=== PATIENT | male | born 1985 | race African-American/Black ===

== ENCOUNTER 2018-02-02 18:08 | Inpatient (IN) | payer MEDICAID ==
[~2018-02-02] VITALS: Ht 177.8 cm; Wt 93.9 kg
[~2018-02-02 18:08] MED LIST: BENZ2TAB58 PO; BUPR100SR PO; QUET50TA PO
[2018-02-02 20:39] VITALS: BP 130/81
[2018-02-02] MEDS: ZOLPIDEM TARTRATE 10 MG TABLET PO PRN (21:32)
[2018-02-02] MEDS: LORazepam 2 MG TABLET PO PRN (21:32)
[2018-02-02 21:35] VITALS: BP 138/82
[2018-02-02] MEDS ORDERED: ACETAMINOPHEN 325 MG TABLET PO PRN (22:00)
[2018-02-02] MEDS ORDERED: LOPERAMIDE HCL 2 MG CAPSULE PO PRN (22:00)
[2018-02-02] MEDS ORDERED: GuaiFENesin/D-METHORPHAN [SUGAR-FREE] 200-20MG/10 ML SYRUP UDCUP PO PRN (22:00)
[2018-02-02] MEDS ORDERED: MAGNESIUM HYDROXIDE SUSPENSION 30 ML UDCUP PO PRN (22:00)
[2018-02-02] MEDS ORDERED: NICOTINE 14 MG/24 HOUR PATCH TD PRN (22:00)
[2018-02-02] MEDS ORDERED: ALBUTEROL SULFATE HFA 90 MCG/PUFF 8 GM INHALER IH PRN (22:00)
[2018-02-02] MEDS ORDERED: PETROLATUM,WHITE 71 GM JELLY TP PRN (22:00)
[2018-02-02] MEDS ORDERED: ONDANSETRON HCL 4 MG TABLET PO PRN (22:00)
[2018-02-02] MEDS ORDERED: DOCUSATE SODIUM 100 MG CAPSULE PO PRN (22:00)
[2018-02-02] MEDS ORDERED: MAG HYDROX/AL HYDROX/SIMETH ES 30 ML SUSPENSION UDCUP PO PRN (22:00)
[2018-02-02] MEDS ORDERED: CloNIDine HCL 0.1 MG TABLET PO PRN (22:00)
[2018-02-03 05:48] VITALS: BP 108/76
[2018-02-03 07:59] LABS: BASOPHILS % (AUTO) 0.5 % (0.0-2.0); EOSINOPHILS % (AUTO) 3.1 % (1.0-6.0); HEMATOCRIT 38.7 % (41-53); HEMOGLOBIN 13.4 g/dL (13.5-17.5); LYMPHOCYTES # (AUTO) 2.7 K/uL (1.0-4.8); LYMPHOCYTES % (AUTO) 38.5 % (22.0-44.0); MEAN CORPUSCULAR HEMOGLOBIN 29.2 pg (26.0-34.0); MEAN CORPUSCULAR HGB CONC 34.7 G/dL (31.0-37.0); MEAN CORPUSCULAR VOLUME 84 fL (80-100); MONOCYTES # (AUTO) 0.8 K/uL (0.1-1.0); MONOCYTES % (AUTO) 11.5 % (2.0-9.0); NEUTROPHILS # (AUTO) 3.2 K/uL (1.8-7.7); NEUTROPHILS % (AUTO) 46.4 % (40.0-70.0); PLATELET COUNT (AUTO) 305 K/uL (150-450); RED BLOOD CELL COUNT(AUTO) 4.59 MIL/uL (4.50-5.90); RED CELL DISTRIBUTION WIDTH 14.6 % (11.5-14.5)
[2018-02-03 08:09] LABS: HEMOGLOBIN A1C 5.1 % (4.5-6.2)
[2018-02-03 08:20] LABS: ALANINE AMINOTRANSFERASE 30 U/L (12-78); ALBUMIN 3.6 g/dL (3.4-5.0); ALKALINE PHOSPHATASE 54 U/L (46-116); ANION GAP 2 mmol/L (8-16); ASPARTATE AMINOTRANSFERASE 22 U/L (15-37); BILIRUBIN,TOTAL 0.3 mg/dL (0.1-1.0); CALCIUM, TOTAL 9.5 mg/dL (8.8-10.5); CARBON DIOXIDE 34 mmol/L (22-29); CHLORIDE 104 mmol/L (98-107); CHOL/HDL RATIO 3.2 (4.2-7.3); CHOLESTEROL 161 mg/dL (131-200); CREATININE 1.03 mg/dL (0.60-1.30); GLOMERULAR FILTR. RATE CALC > 60 mL/min (>60); GLUCOSE,RANDOM 85 mg/dL (70-110); HDL CHOLESTEROL 51 mg/dL (40-60); LDL CHOL (CALC.) 97 mg/dL (0-130); POTASSIUM 4.8 mmol/L (3.5-5.1); SODIUM SERUM 140 mmol/L (136-145); THYROID STIMULATING HORMONE 1.66 uIU/mL (0.36-3.74); TOTAL PROTEIN, SERUM 7.5 g/dL (6.4-8.2); TRIGLYCERIDES 65 mg/dL (15-150); UREA NITROGEN, BLOOD 9 mg/dL (7-18)
[2018-02-03 09:02] VITALS: BP 113/68
[2018-02-03] MEDS: QUEtiapine FUMARATE 100 MG TABLET PO SCH (13:33)
[2018-02-03 16:00] VITALS: BP 112/63
[2018-02-03] MEDS: BENZTROPINE MESYLATE 2 MG TABLET PO SCH (16:11)
[2018-02-03] MEDS: LORazepam 2 MG TABLET PO PRN ×2 (16:13→23:59)
[2018-02-03] MEDS: MIRTAZAPINE 15 MG TABLET PO SCH (20:15)
[2018-02-03] MEDS: QUEtiapine FUMARATE 200 MG TABLET PO SCH (20:15)
[2018-02-03] MEDS: ZOLPIDEM TARTRATE 10 MG TABLET PO PRN (23:59)
[2018-02-04 00:01] VITALS: BP 115/74
[2018-02-04 08:03] VITALS: BP 114/68
[2018-02-04] MEDS: QUEtiapine FUMARATE 100 MG TABLET PO SCH (08:09)
[2018-02-04] MEDS: BENZTROPINE MESYLATE 2 MG TABLET PO SCH ×2 (08:09→16:52)
[2018-02-04] MEDS: LORazepam 2 MG TABLET PO PRN ×2 (14:14→18:27)
[2018-02-04 16:51] VITALS: BP 128/60
[2018-02-04] MEDS: QUEtiapine FUMARATE 200 MG TABLET PO SCH (20:23)
[2018-02-04] MEDS: MIRTAZAPINE 15 MG TABLET PO SCH (20:23)
[2018-02-04] MEDS: ZOLPIDEM TARTRATE 10 MG TABLET PO PRN (21:33)
[2018-02-05 00:10] VITALS: BP 122/78
[2018-02-05] MEDS: LORazepam 2 MG TABLET PO PRN ×3 (00:14→20:15)
[2018-02-05] MEDS: HALOPERIDOL 5 MG TABLET PO PRN (00:14)
[2018-02-05] MEDS: BENZTROPINE MESYLATE 2 MG TABLET PO SCH ×2 (08:33→16:11)
[2018-02-05] MEDS: QUEtiapine FUMARATE 100 MG TABLET PO SCH (08:33)
[2018-02-05 10:02] VITALS: BP 108/89
[2018-02-05] MEDS ORDERED: HALOPERIDOL LACTATE 5 MG/ML VIAL ONE (10:28)
[2018-02-05] MEDS ORDERED: DiphenhydrAMINE HCL 50 MG/ML VIAL ONE (10:28)
[2018-02-05] MEDS ORDERED: LORazepam 2 MG/ML VIAL ONE (10:28)
[2018-02-05] MEDS ORDERED: DiphenhydrAMINE HCL 50 MG/ML VIAL IM ONE ×2 (11:15→21:45)
[2018-02-05] MEDS ORDERED: HALOPERIDOL LACTATE 5 MG/ML VIAL IM ONE ×2 (11:15→21:45)
[2018-02-05] MEDS ORDERED: LORazepam 2 MG/ML VIAL IM ONE ×2 (11:15→21:45)
[2018-02-05 16:15] VITALS: BP 126/76
[2018-02-05] MEDS: QUEtiapine FUMARATE 200 MG TABLET PO SCH (20:15)
[2018-02-05] MEDS: ZOLPIDEM TARTRATE 10 MG TABLET PO PRN (20:15)
[2018-02-05] MEDS: MIRTAZAPINE 15 MG TABLET PO SCH (20:15)
[2018-02-06 04:51] VITALS: BP 115/68
[2018-02-06 08:02] VITALS: BP 129/70
[2018-02-06] MEDS: NICOTINE 21 MG/24 HOUR PATCH TD SCH (08:30)
[2018-02-06] MEDS: QUEtiapine FUMARATE 100 MG TABLET PO SCH (08:30)
[2018-02-06] MEDS: LORazepam 2 MG TABLET PO PRN ×2 (08:31→16:39)
[2018-02-06] MEDS: HALOPERIDOL 5 MG TABLET PO PRN (08:31)
[2018-02-06] MEDS: BENZTROPINE MESYLATE 2 MG TABLET PO SCH ×2 (08:31→16:39)
[2018-02-06 16:10] VITALS: BP 119/78
[2018-02-06] MEDS: IBUPROFEN 400 MG TABLET PO PRN (16:39)
[2018-02-06] MEDS: ZOLPIDEM TARTRATE 10 MG TABLET PO PRN (20:13)
[2018-02-06] MEDS: MIRTAZAPINE 15 MG TABLET PO SCH (20:13)
[2018-02-07 08:02] VITALS: BP 126/68
[2018-02-07] MEDS: NICOTINE 21 MG/24 HOUR PATCH TD SCH (08:29)
[2018-02-07] MEDS: BENZTROPINE MESYLATE 2 MG TABLET PO SCH ×2 (08:29→16:32)
[2018-02-07] MEDS: ARIPiprazole 10 MG TABLET PO SCH (08:29)
[2018-02-07] MEDS: LORazepam 2 MG TABLET PO PRN (16:32)
[2018-02-07 16:34] VITALS: BP 112/76
[2018-02-07] MEDS: ZOLPIDEM TARTRATE 10 MG TABLET PO PRN (20:18)
[2018-02-07] MEDS: MIRTAZAPINE 15 MG TABLET PO SCH (20:18)
[2018-02-08 03:13] VITALS: BP 123/80
[2018-02-08] MEDS: IBUPROFEN 400 MG TABLET PO PRN ×2 (03:13→17:11)
[2018-02-08] MEDS: LORazepam 2 MG TABLET PO PRN ×2 (03:13→16:23)
[2018-02-08 08:04] VITALS: BP 127/67
[2018-02-08] MEDS: BENZTROPINE MESYLATE 2 MG TABLET PO SCH ×2 (08:34→16:23)
[2018-02-08] MEDS: ARIPiprazole 10 MG TABLET PO SCH (08:34)
[2018-02-08] MEDS: NICOTINE 21 MG/24 HOUR PATCH TD SCH (09:00)
[2018-02-08 16:10] VITALS: BP 124/68
[2018-02-08 17:10] VITALS: BP 122/70
[2018-02-08 17:40] VITALS: BP 128/74
[2018-02-08] MEDS: MIRTAZAPINE 15 MG TABLET PO SCH (21:00)
== END 2018-02-08 17:50 | disposition short-term general hospital (02) | DRG 751 ==
LOC: B3A 20:58
PROVIDERS: ADMIT Psychiatry & Neurology Psychiatry; ATTEND Psychiatry & Neurology Psychiatry
DX: F33.3 Major depressive disorder, recurrent, severe with psychotic symptoms (principal); R45.851 Suicidal ideations; F60.3 Borderline personality disorder; F10.10 Alcohol abuse, uncomplicated; F41.9 Anxiety disorder, unspecified; D64.9 Anemia, unspecified; G47.00 Insomnia, unspecified; K59.00 Constipation, unspecified; R45.87 Impulsiveness; J06.9 Acute upper respiratory infection, unspecified; Y90.9 Presence of alcohol in blood, level not specified; Z71.41 Alcohol abuse counseling and surveillance of alcoholic; Z59.0 Homelessness
CPT/HCPCS: 83036; 84443; 86592; J1200; J1630; J2060; Q0162

== ENCOUNTER 2018-02-08 18:15 | Inpatient (IN) | payer MEDICAID ==
[~2018-02-08] VITALS: Ht 177.8 cm; Wt 94.1 kg
[2018-02-08] MEDS ORDERED: ACETAMINOPHEN 325 MG TABLET PO ONE (19:30)
[2018-02-08] MEDS ORDERED: SODIUM CHLORIDE 0.9% 1,000 ML IV ONE (19:30)
[2018-02-08] MEDS ORDERED: ONDANSETRON HCL 4 MG/2 ML VIAL IVP ONE (19:30)
[2018-02-08] MEDS ORDERED: KETOROLAC TROMETHAMINE 30 MG/ML VIAL IVP ONE (19:30)
[2018-02-08 20:48] LABS: INFLUENZA TYPE A NEGATIVE FOR TYPE A (NEGATIVE); INFLUENZA TYPE B NEGATIVE FOR TYPE B (NEGATIVE)
[2018-02-08 21:04] LABS: BASOPHILS % (AUTO) 0.9 % (0.0-2.0); EOSINOPHILS % (AUTO) 0 % (1.0-6.0); HEMATOCRIT 36.2 % (41-53); HEMOGLOBIN 12.2 g/dL (13.5-17.5); LYMPHOCYTES # (AUTO) 2.2 K/uL (1.0-4.8); LYMPHOCYTES % (AUTO) 12.1 % (22.0-44.0); MEAN CORPUSCULAR HEMOGLOBIN 28.5 pg (26.0-34.0); MEAN CORPUSCULAR HGB CONC 33.7 G/dL (31.0-37.0); MEAN CORPUSCULAR VOLUME 85 fL (80-100); MONOCYTES # (AUTO) 1.9 K/uL (0.1-1.0); MONOCYTES % (AUTO) 10.4 % (2.0-9.0); NEUTROPHILS # (AUTO) 14.1 K/uL (1.8-7.7); NEUTROPHILS % (AUTO) 76.6 % (40.0-70.0); PLATELET COUNT (AUTO) 271 K/uL (150-450); RED BLOOD CELL COUNT(AUTO) 4.29 MIL/uL (4.50-5.90); RED CELL DISTRIBUTION WIDTH 14.7 % (11.5-14.5)
[2018-02-08 21:19] LABS: ANION GAP 8 mmol/L (8-16); CALCIUM, TOTAL 9.1 mg/dL (8.8-10.5); CARBON DIOXIDE 27 mmol/L (22-29); CHLORIDE 99 mmol/L (98-107); GLOMERULAR FILTR. RATE CALC > 60 mL/min (>60); GLUCOSE,RANDOM 99 mg/dL (70-110); POTASSIUM 3.9 mmol/L (3.5-5.1); SODIUM SERUM 134 mmol/L (136-145); UREA NITROGEN, BLOOD 10 mg/dL (7-18)
[2018-02-08 21:26] LABS: APPEARANCE,URINE CLOUDY (CLEAR); BILIRUBIN,URINE NEGATIVE (NEGATIVE); GLUCOSE, URINE (UA) NEGATIVE (NEGATIVE); KETONES,URINE NEGATIVE (NEGATIVE); LEUKOCYTE ESTERASE ,URINE MODERATE (NEGATIVE); NITRATE,URINE NEGATIVE (NEGATIVE); OCCULT BLOOD,URINE TRACE (NEGATIVE); PH,URINE 6.5 (5.0-8.0); PROTEIN,URINE NEGATIVE (NEGATIVE); UROBILINOGEN,URINE 0.2 mg/dL (<=1.0)
[2018-02-08 21:42] LABS: WBC,URINE 51-100 /HPF (0-5)
[2018-02-08 21:43] LABS: BACTERIA,URINE Many /HPF (None Seen); RBC,URINE 0-2 /HPF (0-2)
[2018-02-08 21:44] LABS: MUCUS,URINE Rare LPF (None Seen); SQUAMOUS EPITHELIAL CELL,UR Few /LPF (None Seen)
[2018-02-08] MEDS ORDERED: 0.9% SODIUM CHLORIDE 10 ML SYRINGE IVP PRN (22:00)
[2018-02-08] MEDS ORDERED: CefTRIAXone 1 GM/DEXTROSE 50 ML IV ONE (22:00)
[2018-02-08] MEDS ORDERED: ACETAMINOPHEN 325 MG TABLET PO PRN (22:00)
[2018-02-09] MEDS ORDERED: MAGNESIUM HYDROXIDE SUSPENSION 30 ML UDCUP PO PRN (08:00)
[2018-02-09 08:18] VITALS: BP 117/68
[2018-02-09] MEDS: PANTOPRAZOLE SODIUM 40 MG DR TABLET PO SCH (09:04)
[2018-02-09] MEDS: DOCUSATE SODIUM 100 MG CAPSULE PO SCH ×2 (09:04→20:10)
[2018-02-09] MEDS: SODIUM CHLORIDE 0.9% 1,000 ML IV SCH ×2 (09:07→15:54)
[2018-02-09 11:06] VITALS: BP 125/74
[2018-02-09] MEDS: OxyCODONE HCL/ACETAMINOPHEN 5-325 MG TABLET PO PRN ×2 (12:34→18:28)
[2018-02-09 17:54] VITALS: BP 123/74
[2018-02-09] MEDS: CefTRIAXone 1 GM/DEXTROSE 50 ML IV SCH (20:10)
[2018-02-09 20:28] VITALS: BP 95/52
[2018-02-09] MEDS: ACETAMINOPHEN 325 MG TABLET PO PRN (20:39)
[2018-02-10] MEDS: SODIUM CHLORIDE 0.9% 1,000 ML IV SCH ×3 (00:07→16:40)
[2018-02-10 00:13] VITALS: BP 97/48
[2018-02-10] MEDS: ACETAMINOPHEN 325 MG TABLET PO PRN (05:40)
[2018-02-10 05:42] VITALS: BP 116/68
[2018-02-10 06:33] LABS: BASOPHILS % (AUTO) 0.7 % (0.0-2.0); EOSINOPHILS % (AUTO) 1.8 % (1.0-6.0); HEMATOCRIT 32.4 % (41-53); HEMOGLOBIN 11.1 g/dL (13.5-17.5); LYMPHOCYTES % (AUTO) 14.2 % (22.0-44.0); MEAN CORPUSCULAR HEMOGLOBIN 29.4 pg (26.0-34.0); MEAN CORPUSCULAR HGB CONC 34.2 G/dL (31.0-37.0); MEAN CORPUSCULAR VOLUME 86 fL (80-100); MONOCYTES # (AUTO) 1.6 K/uL (0.1-1.0); MONOCYTES % (AUTO) 11.3 % (2.0-9.0); PLATELET COUNT (AUTO) 237 K/uL (150-450); RED BLOOD CELL COUNT(AUTO) 3.77 MIL/uL (4.50-5.90); RED CELL DISTRIBUTION WIDTH 14.4 % (11.5-14.5)
[2018-02-10 06:40] LABS: ANION GAP 7 mmol/L (8-16); CALCIUM, TOTAL 8.7 mg/dL (8.8-10.5); CARBON DIOXIDE 28 mmol/L (22-29); CHLORIDE 105 mmol/L (98-107); CREATININE 1.07 mg/dL (0.60-1.30); GLOMERULAR FILTR. RATE CALC > 60 mL/min (>60); GLUCOSE,RANDOM 94 mg/dL (70-110); POTASSIUM 3.8 mmol/L (3.5-5.1); SODIUM SERUM 140 mmol/L (136-145); UREA NITROGEN, BLOOD 10 mg/dL (7-18)
[2018-02-10 07:34] VITALS: BP 108/62
[2018-02-10] MEDS: OxyCODONE HCL/ACETAMINOPHEN 5-325 MG TABLET PO PRN ×2 (08:23→16:40)
[2018-02-10] MEDS: DOCUSATE SODIUM 100 MG CAPSULE PO SCH ×2 (08:23→20:31)
[2018-02-10] MEDS: PANTOPRAZOLE SODIUM 40 MG DR TABLET PO SCH (08:23)
[2018-02-10] MEDS ORDERED: QUET300T2 PO (12:48)
[2018-02-10 15:34] VITALS: BP 109/51
[2018-02-10 19:17] VITALS: BP 117/78
[2018-02-10] MEDS: BENZTROPINE MESYLATE 2 MG TABLET PO SCH (20:31)
[2018-02-10] MEDS: MIRTAZAPINE 15 MG TABLET PO SCH (20:31)
[2018-02-10] MEDS: CefTRIAXone 1 GM/DEXTROSE 50 ML IV SCH (20:31)
[2018-02-10 23:48] VITALS: BP 113/61
[2018-02-11 03:56] VITALS: BP 112/63
[2018-02-11] MEDS: SODIUM CHLORIDE 0.9% 1,000 ML IV SCH ×2 (06:01→15:02)
[2018-02-11] MEDS: OxyCODONE HCL/ACETAMINOPHEN 5-325 MG TABLET PO PRN ×2 (06:01→15:14)
[2018-02-11 07:35] VITALS: BP 114/62
[2018-02-11] MEDS: BENZTROPINE MESYLATE 2 MG TABLET PO SCH ×2 (09:29→19:48)
[2018-02-11] MEDS: ARIPiprazole 10 MG TABLET PO SCH (09:29)
[2018-02-11] MEDS: DOCUSATE SODIUM 100 MG CAPSULE PO SCH ×2 (09:29→19:48)
[2018-02-11] MEDS: PANTOPRAZOLE SODIUM 40 MG DR TABLET PO SCH (09:29)
[2018-02-11 11:22] VITALS: BP 118/62
[2018-02-11 16:05] VITALS: BP 119/70
[2018-02-11 19:16] VITALS: BP 121/79
[2018-02-11] MEDS: MIRTAZAPINE 15 MG TABLET PO SCH (19:48)
[2018-02-11] MEDS: CefTRIAXone 1 GM/DEXTROSE 50 ML IV SCH (19:48)
[2018-02-11 23:41] VITALS: BP 122/65
[2018-02-12] MEDS: SODIUM CHLORIDE 0.9% 1,000 ML IV SCH ×2 (01:23→09:21)
[2018-02-12 05:09] VITALS: BP 125/76
[2018-02-12 06:09] LABS: EOSINOPHILS % (AUTO) 4.1 % (1.0-6.0); HEMATOCRIT 37.7 % (41-53); HEMOGLOBIN 12.5 g/dL (13.5-17.5); LYMPHOCYTES # (AUTO) 2.5 K/uL (1.0-4.8); LYMPHOCYTES % (AUTO) 35.5 % (22.0-44.0); MEAN CORPUSCULAR HEMOGLOBIN 28.7 pg (26.0-34.0); MEAN CORPUSCULAR HGB CONC 33.3 G/dL (31.0-37.0); MEAN CORPUSCULAR VOLUME 86 fL (80-100); MONOCYTES % (AUTO) 14.3 % (2.0-9.0); NEUTROPHILS # (AUTO) 3.1 K/uL (1.8-7.7); NEUTROPHILS % (AUTO) 45.1 % (40.0-70.0); PLATELET COUNT (AUTO) 283 K/uL (150-450); RED BLOOD CELL COUNT(AUTO) 4.37 MIL/uL (4.50-5.90); RED CELL DISTRIBUTION WIDTH 14.8 % (11.5-14.5)
[2018-02-12 08:04] VITALS: BP 124/67
[2018-02-12] MEDS: BENZTROPINE MESYLATE 2 MG TABLET PO SCH (08:38)
[2018-02-12] MEDS: PANTOPRAZOLE SODIUM 40 MG DR TABLET PO SCH (08:38)
[2018-02-12] MEDS: ARIPiprazole 10 MG TABLET PO SCH (08:38)
[2018-02-12] MEDS: DOCUSATE SODIUM 100 MG CAPSULE PO SCH (08:39)
[2018-02-12] MEDS: OxyCODONE HCL/ACETAMINOPHEN 5-325 MG TABLET PO PRN (08:46)
[2018-02-12] MEDS ORDERED: BACTDSB PO (09:47)
== END 2018-02-12 10:15 | disposition home or self-care (01) | DRG 720 ==
LOC: EMS 18:16 → 6N 02-09 05:37
PROVIDERS: ADMIT Internal Medicine; ATTEND Internal Medicine
DX: A41.9 Sepsis, unspecified organism (principal); F33.3 Major depressive disorder, recurrent, severe with psychotic symptoms; N12 Tubulo-interstitial nephritis, not specified as acute or chronic; F99 Mental disorder, not otherwise specified; F41.9 Anxiety disorder, unspecified; F60.3 Borderline personality disorder; Z79.899 Other long term (current) drug therapy; Z59.0 Homelessness
CPT/HCPCS: 83605; 87040; 87086; 87804; 96365; 96375; G0378; J0696; J1885; J2405; J7030

== ENCOUNTER 2020-08-19 11:06 | Inpatient (IN) | payer MEDICAID ==
[~2020-08-19] VITALS: Ht 177.8 cm; Wt 88.8 kg
[~2020-08-19 11:06] MED LIST changes: +BACTDSB PO; +QUET300T2 PO
[2020-08-19 11:59] LABS: AMPHET/METH SCREEN,URINE NEGATIVE (NEGATIVE); BARBITURATE SCREEN, URINE NEGATIVE (NEGATIVE); BENZODIAZEPINES SCREEN,URINE NEGATIVE (NEGATIVE); CANNABINOID SCREEN,URINE NEGATIVE (NEGATIVE); COCAINE SCREEN,URINE NEGATIVE (NEGATIVE); METHADONE SCREEN, URINE NEGATIVE (NEGATIVE); OPIATE SCREEN,URINE NEGATIVE (NEGATIVE)
[2020-08-19 12:00] LABS: PHENCYCLIDINE SCREEN,URINE NEGATIVE (NEGATIVE)
[2020-08-19 12:01] LABS: EOSINOPHILS % (AUTO) 0.5 % (1.0-6.0); HEMATOCRIT 39.9 % (41-53); HEMOGLOBIN 13.2 g/dL (13.5-17.5); LYMPHOCYTES # (AUTO) 1.7 K/uL (1.0-4.8); LYMPHOCYTES % (AUTO) 24.3 % (22.0-44.0); MEAN CORPUSCULAR VOLUME 88 fL (80-100); MONOCYTES # (AUTO) 0.7 K/uL (0.1-1.0); MONOCYTES % (AUTO) 9.7 % (2.0-9.0); NEUTROPHILS # (AUTO) 4.4 K/uL (1.8-7.7); NEUTROPHILS % (AUTO) 64.5 % (40.0-70.0); PLATELET COUNT (AUTO) 293 K/uL (150-450); RED BLOOD CELL COUNT(AUTO) 4.54 MIL/uL (4.50-5.90); RED CELL DISTRIBUTION WIDTH 14.4 % (11.5-14.5)
[2020-08-19 12:06] LABS: COVID AG,FIA SOURCE NASOPHARYNGEAL
[2020-08-19 12:10] LABS: ANION GAP 8 mmol/L (8-16); CALCIUM, TOTAL 9.3 mg/dL (8.8-10.5); CARBON DIOXIDE 24 mmol/L (22-29); CHLORIDE 101 mmol/L (98-107); CREATININE 0.92 mg/dL (0.60-1.30); GLOMERULAR FILTR. RATE CALC > 60 mL/min (>60); GLUCOSE,RANDOM 97 mg/dL (70-110); POTASSIUM 3.6 mmol/L (3.5-5.1); SODIUM SERUM 133 mmol/L (136-145); UREA NITROGEN, BLOOD 5 mg/dL (7-18)
[2020-08-19 12:16] LABS: ALANINE AMINOTRANSFERASE 147 U/L (12-78); ALBUMIN 3.9 g/dL (3.4-5.0); ALKALINE PHOSPHATASE 53 U/L (46-116); ASPARTATE AMINOTRANSFERASE 70 U/L (15-37); BILIRUBIN,TOTAL 0.6 mg/dL (0.1-1.0); TOTAL PROTEIN, SERUM 7.9 g/dL (6.4-8.2)
[2020-08-19 13:51] LABS: INFLUENZA TYPE A NEGATIVE FOR TYPE A (NEGATIVE)
[2020-08-19 13:52] LABS: INFLUENZA TYPE B NEGATIVE FOR TYPE B (NEGATIVE)
[2020-08-19] MEDS ORDERED: IBUPROFEN 600 MG TABLET PO ONE (16:15)
[2020-08-19] MEDS: LORazepam 2 MG TABLET PO PRN ×2 (17:42→21:55)
[2020-08-19 21:22] VITALS: BP 128/77
[2020-08-19] MEDS: ZOLPIDEM TARTRATE 10 MG TABLET PO PRN (21:55)
[2020-08-19] MEDS: HALOPERIDOL 5 MG TABLET PO PRN ×2 (21:56→21:57)
[2020-08-20 06:41] LABS: CHOL/HDL RATIO 3.3 (4.2-7.3)
[2020-08-20] MEDS ORDERED: GuaiFENesin/D-METHORPHAN [SUGAR-FREE] 200-20MG/10 ML SYRUP UDCUP PO PRN (07:30)
[2020-08-20] MEDS ORDERED: ACETAMINOPHEN 325 MG TABLET PO PRN (07:30)
[2020-08-20] MEDS ORDERED: LOPERAMIDE HCL 2 MG CAPSULE PO PRN (07:30)
[2020-08-20] MEDS ORDERED: CloNIDine HCL 0.1 MG TABLET PO PRN (07:30)
[2020-08-20] MEDS ORDERED: ONDANSETRON HCL 4 MG TABLET PO PRN (07:30)
[2020-08-20] MEDS ORDERED: MAGNESIUM HYDROXIDE SUSPENSION 30 ML UDCUP PO PRN (07:30)
[2020-08-20] MEDS ORDERED: NICOTINE 14 MG/24 HOUR PATCH TD PRN (07:30)
[2020-08-20] MEDS ORDERED: DOCUSATE SODIUM 100 MG CAPSULE PO PRN (07:30)
[2020-08-20] MEDS ORDERED: PETROLATUM,WHITE 28 GM JELLY TP PRN (07:30)
[2020-08-20] MEDS ORDERED: ALBUTEROL SULFATE HFA 90 MCG/PUFF 8 GM INHALER IH PRN (07:30)
[2020-08-20 08:25] VITALS: BP 117/63
[2020-08-20] MEDS: NICOTINE 14 MG/24 HOUR PATCH TD SCH (09:00)
[2020-08-20] MEDS: LORazepam 2 MG TABLET PO PRN ×3 (09:29→20:53)
[2020-08-20] MEDS: BuPROPion HCL 100 MG SR TABLET PO SCH (12:53)
[2020-08-20] MEDS: BENZTROPINE MESYLATE 2 MG TABLET PO SCH (12:53)
[2020-08-20] MEDS: QUEtiapine FUMARATE 25 MG TABLET PO SCH ×2 (12:54→16:31)
[2020-08-20 17:17] VITALS: BP 99/50
[2020-08-20] MEDS: QUEtiapine FUMARATE 300 MG TABLET PO SCH (20:25)
[2020-08-20] MEDS: ZOLPIDEM TARTRATE 10 MG TABLET PO PRN (22:39)
[2020-08-21 06:25] LABS: BASOPHILS % (AUTO) 1.3 % (0.0-2.0); EOSINOPHILS % (AUTO) 3.1 % (1.0-6.0); HEMATOCRIT 38.3 % (41-53); HEMOGLOBIN 12.7 g/dL (13.5-17.5); LYMPHOCYTES # (AUTO) 3.2 K/uL (1.0-4.8); MEAN CORPUSCULAR HEMOGLOBIN 29.2 pg (26.0-34.0); MEAN CORPUSCULAR HGB CONC 33.1 G/dL (31.0-37.0); MEAN CORPUSCULAR VOLUME 88 fL (80-100); MONOCYTES # (AUTO) 0.9 K/uL (0.1-1.0); MONOCYTES % (AUTO) 10.9 % (2.0-9.0); NEUTROPHILS # (AUTO) 4.1 K/uL (1.8-7.7); NEUTROPHILS % (AUTO) 47.7 % (40.0-70.0); PLATELET COUNT (AUTO) 256 K/uL (150-450); RED BLOOD CELL COUNT(AUTO) 4.34 MIL/uL (4.50-5.90); RED CELL DISTRIBUTION WIDTH 14.5 % (11.5-14.5)
[2020-08-21] MEDS: BuPROPion HCL 100 MG SR TABLET PO SCH ×2 (10:50→14:42)
[2020-08-21] MEDS: BENZTROPINE MESYLATE 2 MG TABLET PO SCH ×2 (10:59→14:43)
[2020-08-21] MEDS: QUEtiapine FUMARATE 25 MG TABLET PO SCH ×3 (10:59→16:09)
[2020-08-21] MEDS: NICOTINE 14 MG/24 HOUR PATCH TD SCH (11:00)
[2020-08-21] MEDS: LORazepam 2 MG TABLET PO PRN ×2 (16:09→21:29)
[2020-08-21 16:51] VITALS: BP 115/67
[2020-08-21] MEDS: ZOLPIDEM TARTRATE 10 MG TABLET PO PRN (20:13)
[2020-08-21] MEDS: QUEtiapine FUMARATE 300 MG TABLET PO SCH (20:13)
[2020-08-22 08:43] VITALS: BP 107/56
[2020-08-22] MEDS: QUEtiapine FUMARATE 25 MG TABLET PO SCH ×3 (09:49→15:59)
[2020-08-22] MEDS: BuPROPion HCL 100 MG SR TABLET PO SCH ×2 (09:49→14:41)
[2020-08-22] MEDS: BENZTROPINE MESYLATE 2 MG TABLET PO SCH ×2 (09:49→14:42)
[2020-08-22] MEDS: NICOTINE 14 MG/24 HOUR PATCH TD SCH (09:50)
[2020-08-22] MEDS: LORazepam 2 MG TABLET PO PRN ×3 (14:41→23:47)
[2020-08-22 16:40] VITALS: BP 132/82
[2020-08-22] MEDS: QUEtiapine FUMARATE 300 MG TABLET PO SCH (20:11)
[2020-08-22] MEDS: ZOLPIDEM TARTRATE 10 MG TABLET PO PRN (20:11)
[2020-08-23] MEDS: BuPROPion HCL 100 MG SR TABLET PO SCH ×2 (08:09→12:33)
[2020-08-23] MEDS: LORazepam 2 MG TABLET PO PRN ×2 (08:10→12:33)
[2020-08-23] MEDS: QUEtiapine FUMARATE 25 MG TABLET PO SCH ×3 (08:10→16:16)
[2020-08-23] MEDS: BENZTROPINE MESYLATE 2 MG TABLET PO SCH ×2 (08:10→12:33)
[2020-08-23] MEDS: NICOTINE 14 MG/24 HOUR PATCH TD SCH (08:14)
[2020-08-23 16:29] VITALS: BP 114/71
[2020-08-23] MEDS: QUEtiapine FUMARATE 300 MG TABLET PO SCH (20:30)
[2020-08-23] MEDS: ZOLPIDEM TARTRATE 10 MG TABLET PO PRN (22:25)
[2020-08-23] MEDS: MAG HYDROX/AL HYDROX/SIMETH ES 30 ML SUSPENSION UDCUP PO PRN (22:44)
[2020-08-24 02:32] VITALS: BP 118/74
[2020-08-24] MEDS: LORazepam 2 MG TABLET PO PRN ×3 (02:35→16:19)
[2020-08-24] MEDS: QUEtiapine FUMARATE 25 MG TABLET PO SCH ×3 (08:14→16:16)
[2020-08-24] MEDS: BuPROPion HCL 100 MG SR TABLET PO SCH ×2 (08:14→13:05)
[2020-08-24] MEDS: BENZTROPINE MESYLATE 2 MG TABLET PO SCH ×2 (08:14→13:05)
[2020-08-24] MEDS: NICOTINE 14 MG/24 HOUR PATCH TD SCH (08:18)
[2020-08-24 08:47] VITALS: BP 90/51
[2020-08-24 16:19] VITALS: BP 122/75
[2020-08-24 17:19] VITALS: BP 120/80
[2020-08-24 17:25] VITALS: BP 135/69
[2020-08-24] MEDS: IBUPROFEN 400 MG TABLET PO PRN (17:25)
[2020-08-24 18:25] VITALS: BP 122/75
[2020-08-24] MEDS: MAG HYDROX/AL HYDROX/SIMETH ES 30 ML SUSPENSION UDCUP PO PRN (18:26)
[2020-08-24] MEDS: QUEtiapine FUMARATE 300 MG TABLET PO SCH (20:12)
[2020-08-24] MEDS: ZOLPIDEM TARTRATE 10 MG TABLET PO PRN (21:32)
[2020-08-25] MEDS: HALOPERIDOL 5 MG TABLET PO PRN (00:01)
[2020-08-25] MEDS: LORazepam 2 MG TABLET PO PRN ×3 (00:01→20:31)
[2020-08-25 08:24] VITALS: BP 126/80
[2020-08-25] MEDS: BuPROPion HCL 100 MG SR TABLET PO SCH ×2 (10:03→13:10)
[2020-08-25] MEDS: QUEtiapine FUMARATE 25 MG TABLET PO SCH ×3 (10:03→16:12)
[2020-08-25] MEDS: NICOTINE 14 MG/24 HOUR PATCH TD SCH (10:03)
[2020-08-25] MEDS: BENZTROPINE MESYLATE 2 MG TABLET PO SCH ×2 (10:03→13:12)
[2020-08-25 14:16] LABS: COVID AG,FIA SOURCE NASOPHARYNGEAL
[2020-08-25] MEDS ORDERED: BENZ2TAB10 PO (14:48)
[2020-08-25] MEDS: IBUPROFEN 400 MG TABLET PO PRN (16:12)
[2020-08-25 16:14] VITALS: BP 112/71
[2020-08-25] MEDS: QUEtiapine FUMARATE 200 MG TABLET PO SCH (20:31)
[2020-08-25] MEDS: ZOLPIDEM TARTRATE 10 MG TABLET PO PRN (22:46)
[2020-08-26] MEDS: MAG HYDROX/AL HYDROX/SIMETH ES 30 ML SUSPENSION UDCUP PO PRN (01:06)
[2020-08-26] MEDS: BENZTROPINE MESYLATE 2 MG TABLET PO SCH ×2 (09:00→10:25)
[2020-08-26 09:08] VITALS: BP 135/64
[2020-08-26] MEDS: NICOTINE 14 MG/24 HOUR PATCH TD SCH (09:24)
[2020-08-26] MEDS: QUEtiapine FUMARATE 25 MG TABLET PO SCH ×3 (09:24→16:45)
[2020-08-26] MEDS: BuPROPion HCL 100 MG SR TABLET PO SCH ×2 (09:24→13:54)
[2020-08-26] MEDS: LORazepam 2 MG TABLET PO PRN ×2 (09:25→16:45)
[2020-08-26 17:32] VITALS: BP 118/70
[2020-08-26] MEDS: QUEtiapine FUMARATE 200 MG TABLET PO SCH (20:14)
[2020-08-26] MEDS: ZOLPIDEM TARTRATE 10 MG TABLET PO PRN (21:04)
[2020-08-27] MEDS: LORazepam 2 MG TABLET PO PRN ×4 (00:15→20:26)
[2020-08-27] MEDS: BENZTROPINE MESYLATE 2 MG TABLET PO SCH ×2 (09:00→13:00)
[2020-08-27] MEDS: QUEtiapine FUMARATE 25 MG TABLET PO SCH ×3 (09:05→16:10)
[2020-08-27] MEDS: MULTIVITAMINS WITH MINERALS, THERAPEUTIC TABLET PO SCH (09:05)
[2020-08-27] MEDS: BuPROPion HCL 100 MG SR TABLET PO SCH ×2 (09:05→13:04)
[2020-08-27] MEDS: NICOTINE 14 MG/24 HOUR PATCH TD SCH (09:05)
[2020-08-27 16:36] VITALS: BP 142/64
[2020-08-27] MEDS: QUEtiapine FUMARATE 200 MG TABLET PO SCH (20:26)
[2020-08-28 08:16] VITALS: BP 106/53
[2020-08-28] MEDS: QUEtiapine FUMARATE 25 MG TABLET PO SCH ×3 (08:20→16:48)
[2020-08-28] MEDS: BuPROPion HCL 100 MG SR TABLET PO SCH ×2 (08:20→12:37)
[2020-08-28] MEDS: LORazepam 2 MG TABLET PO PRN ×4 (08:20→21:29)
[2020-08-28] MEDS: MULTIVITAMINS WITH MINERALS, THERAPEUTIC TABLET PO SCH (08:21)
[2020-08-28] MEDS: NICOTINE 14 MG/24 HOUR PATCH TD SCH ×2 (08:22→08:25)
[2020-08-28] MEDS: BENZTROPINE MESYLATE 2 MG TABLET PO SCH ×2 (08:25→13:00)
[2020-08-28] MEDS ORDERED: NICOTINE 14 MG/24 HOUR PATCH TD PRN (10:00)
[2020-08-28 17:03] VITALS: BP 132/70
[2020-08-28 17:04] VITALS: BP 132/70
[2020-08-28] MEDS: QUEtiapine FUMARATE 200 MG TABLET PO SCH (20:17)
[2020-08-29 08:15] VITALS: BP 109/78
[2020-08-29] MEDS: BENZTROPINE MESYLATE 2 MG TABLET PO SCH ×3 (08:15→11:56)
[2020-08-29] MEDS: QUEtiapine FUMARATE 25 MG TABLET PO SCH ×3 (08:15→16:08)
[2020-08-29] MEDS: BuPROPion HCL 100 MG SR TABLET PO SCH ×2 (08:16→12:58)
[2020-08-29] MEDS: LORazepam 2 MG TABLET PO PRN ×2 (08:17→16:10)
[2020-08-29] MEDS: MULTIVITAMINS WITH MINERALS, THERAPEUTIC TABLET PO SCH (08:17)
[2020-08-29 16:00] VITALS: BP 121/76
[2020-08-29] MEDS: QUEtiapine FUMARATE 200 MG TABLET PO SCH (20:12)
[2020-08-29] MEDS: ZOLPIDEM TARTRATE 10 MG TABLET PO PRN (21:29)
[2020-08-30 08:00] VITALS: BP_SYST 116
[2020-08-30] MEDS: BENZTROPINE MESYLATE 2 MG TABLET PO SCH ×2 (08:38→12:38)
[2020-08-30] MEDS: LORazepam 2 MG TABLET PO PRN ×3 (08:38→20:20)
[2020-08-30] MEDS: BuPROPion HCL 100 MG SR TABLET PO SCH ×2 (08:38→12:40)
[2020-08-30] MEDS: QUEtiapine FUMARATE 25 MG TABLET PO SCH ×3 (08:38→16:35)
[2020-08-30] MEDS: MULTIVITAMINS WITH MINERALS, THERAPEUTIC TABLET PO SCH (08:39)
[2020-08-30 16:15] VITALS: BP 108/66
[2020-08-30] MEDS: QUEtiapine FUMARATE 200 MG TABLET PO SCH (20:20)
[2020-08-31] MEDS: MULTIVITAMINS WITH MINERALS, THERAPEUTIC TABLET PO SCH (08:20)
[2020-08-31] MEDS: BuPROPion HCL 100 MG SR TABLET PO SCH ×2 (08:20→12:52)
[2020-08-31] MEDS: LORazepam 2 MG TABLET PO PRN ×2 (08:20→15:02)
[2020-08-31] MEDS: QUEtiapine FUMARATE 25 MG TABLET PO SCH ×3 (08:20→16:08)
[2020-08-31] MEDS: BENZTROPINE MESYLATE 2 MG TABLET PO SCH ×2 (08:22→12:51)
[2020-08-31 09:54] VITALS: BP 158/106
[2020-08-31 16:00] VITALS: BP 116/68
[2020-08-31] MEDS: QUEtiapine FUMARATE 200 MG TABLET PO SCH (20:11)
[2020-09-01 08:09] VITALS: BP 111/70
[2020-09-01] MEDS: BuPROPion HCL 100 MG SR TABLET PO SCH ×2 (08:24→12:39)
[2020-09-01] MEDS: QUEtiapine FUMARATE 25 MG TABLET PO SCH ×3 (08:24→16:36)
[2020-09-01] MEDS: MULTIVITAMINS WITH MINERALS, THERAPEUTIC TABLET PO SCH (08:24)
[2020-09-01] MEDS: LORazepam 2 MG TABLET PO PRN ×4 (08:27→21:03)
[2020-09-01] MEDS: BENZTROPINE MESYLATE 2 MG TABLET PO SCH ×2 (09:00→12:45)
[2020-09-01 15:09] LABS: COVID AG,FIA SOURCE NASOPHARYNGEAL
[2020-09-01 16:20] VITALS: BP 112/70
[2020-09-01] MEDS: ZOLPIDEM TARTRATE 10 MG TABLET PO PRN (21:03)
[2020-09-01] MEDS: QUEtiapine FUMARATE 200 MG TABLET PO SCH (21:03)
[2020-09-02 08:27] VITALS: BP 100/64
[2020-09-02] MEDS: QUEtiapine FUMARATE 25 MG TABLET PO SCH ×3 (09:48→16:20)
[2020-09-02] MEDS: MULTIVITAMINS WITH MINERALS, THERAPEUTIC TABLET PO SCH (09:48)
[2020-09-02] MEDS: BuPROPion HCL 100 MG SR TABLET PO SCH ×2 (09:48→13:37)
[2020-09-02] MEDS: LORazepam 2 MG TABLET PO PRN ×3 (09:51→20:56)
[2020-09-02 16:32] VITALS: BP 107/65
[2020-09-02] MEDS: ZOLPIDEM TARTRATE 10 MG TABLET PO PRN (20:56)
[2020-09-02] MEDS: QUEtiapine FUMARATE 200 MG TABLET PO SCH (20:57)
[2020-09-03 08:19] VITALS: BP 131/70
[2020-09-03] MEDS: BuPROPion HCL 100 MG SR TABLET PO SCH ×2 (08:25→12:32)
[2020-09-03] MEDS: MULTIVITAMINS WITH MINERALS, THERAPEUTIC TABLET PO SCH (08:25)
[2020-09-03] MEDS: QUEtiapine FUMARATE 25 MG TABLET PO SCH ×2 (08:25→12:31)
[2020-09-03] MEDS: LORazepam 2 MG TABLET PO PRN (08:25)
[2020-09-03] MEDS ORDERED: QUET50TA PO (09:13)
[2020-09-03] MEDS ORDERED: BUPR100SR PO (09:13)
[2020-09-03] MEDS ORDERED: QUET200T29 PO (09:13)
== END 2020-09-03 14:40 | disposition home or self-care (01) | DRG 750 ==
LOC: EMS 11:14 → 3EC 18:46
DX: F25.1 Schizoaffective disorder, depressive type (principal); R45.851 Suicidal ideations; E87.1 Hypo-osmolality and hyponatremia; F31.9 Bipolar disorder, unspecified; F43.10 Post-traumatic stress disorder, unspecified; Z65.3 Problems related to other legal circumstances; D64.9 Anemia, unspecified; F10.10 Alcohol abuse, uncomplicated; Z79.899 Other long term (current) drug therapy; Z87.01 Personal history of pneumonia (recurrent); Z87.891 Personal history of nicotine dependence; Z91.5 Personal history of self-harm; Z20.822 Contact with and (suspected) exposure to COVID-19
CPT/HCPCS: 71045; 80053; 80061; 85025; 87804; 99285; G0480; 36415-L1; 36415-TC

== ENCOUNTER 2020-10-05 14:47 | Inpatient (IN) | payer MEDICAID, OTHER ==
[~2020-10-05] VITALS: Ht 177.8 cm; Wt 86.6 kg
[~2020-10-05 14:47] MED LIST changes: -BACTDSB PO; -BENZ2TAB58 PO; +QUET200T30 PO; -QUET300T2 PO
[2020-10-05] MEDS ORDERED: HALOPERIDOL 5 MG TABLET PO PRN (17:15)
[2020-10-05 17:18] LABS: BASOPHILS % (AUTO) 0.6 % (0.0-2.0); EOSINOPHILS % (AUTO) 0.7 % (1.0-6.0); HEMATOCRIT 41.7 % (41-53); HEMOGLOBIN 13.6 g/dL (13.5-17.5); LYMPHOCYTES # (AUTO) 2.3 K/uL (1.0-4.8); LYMPHOCYTES % (AUTO) 25.7 % (22.0-44.0); MEAN CORPUSCULAR HEMOGLOBIN 28.9 pg (26.0-34.0); MEAN CORPUSCULAR HGB CONC 32.6 G/dL (31.0-37.0); MEAN CORPUSCULAR VOLUME 89 fL (80-100); MONOCYTES # (AUTO) 0.6 K/uL (0.1-1.0); MONOCYTES % (AUTO) 6.6 % (2.0-9.0); NEUTROPHILS % (AUTO) 66.4 % (40.0-70.0); PLATELET COUNT (AUTO) 340 K/uL (150-450); RED BLOOD CELL COUNT(AUTO) 4.71 MIL/uL (4.50-5.90); RED CELL DISTRIBUTION WIDTH 13.8 % (11.5-14.5)
[2020-10-05 17:24] LABS: COVID AG,FIA SOURCE NASOPHARYNGEAL
[2020-10-05 17:26] LABS: ANION GAP 6 mmol/L (8-16); CALCIUM, TOTAL 9.4 mg/dL (8.8-10.5); CARBON DIOXIDE 27 mmol/L (22-29); CHLORIDE 105 mmol/L (98-107); CREATININE 1.02 mg/dL (0.60-1.30); GLOMERULAR FILTR. RATE CALC > 60 mL/min (>60); GLUCOSE,RANDOM 87 mg/dL (70-110); POTASSIUM 3.6 mmol/L (3.5-5.1); SODIUM SERUM 138 mmol/L (136-145); UREA NITROGEN, BLOOD 8 mg/dL (7-18)
[2020-10-05 17:44] LABS: ALANINE AMINOTRANSFERASE 63 U/L (12-78); ALBUMIN 4.1 g/dL (3.4-5.0); ALKALINE PHOSPHATASE 54 U/L (46-116); ASPARTATE AMINOTRANSFERASE 27 U/L (15-37); BILIRUBIN,TOTAL 0.5 mg/dL (0.1-1.0); CHOL/HDL RATIO 2.6 (4.2-7.3); CHOLESTEROL 192 mg/dL (131-200); FREE T4 (FREE THYROXINE) 0.88 ng/dL (0.76-1.46); HDL CHOLESTEROL 75 mg/dL (40-60); LDL CHOL (CALC.) 107 mg/dL (0-130); THYROID STIMULATING HORMONE 1.05 uIU/mL (0.36-3.74); TOTAL PROTEIN, SERUM 8.4 g/dL (6.4-8.2); TRIGLYCERIDES 49 mg/dL (15-150)
[2020-10-05] MEDS: QUEtiapine FUMARATE 25 MG TABLET PO SCH (18:56)
[2020-10-05] MEDS: BuPROPion HCL 100 MG SR TABLET PO SCH (18:56)
[2020-10-05 21:34] VITALS: BP 150/98
[2020-10-05] MEDS: QUEtiapine FUMARATE 200 MG TABLET PO SCH (21:44)
[2020-10-06] VITALS (7 sets, daily range): BP systolic 104–125; BP diastolic 59–84
[2020-10-06] MEDS: NICOTINE 14 MG/24 HOUR PATCH TD SCH (08:23)
[2020-10-06] MEDS: QUEtiapine FUMARATE 25 MG TABLET PO SCH ×3 (08:24→16:33)
[2020-10-06] MEDS: LORazepam 2 MG TABLET PO PRN ×3 (08:24→19:06)
[2020-10-06] MEDS: BuPROPion HCL 100 MG SR TABLET PO SCH ×2 (08:24→16:32)
[2020-10-06] MEDS ORDERED: PETROLATUM,WHITE 28 GM JELLY TP PRN (10:00)
[2020-10-06] MEDS ORDERED: MAG HYDROX/AL HYDROX/SIMETH ES 30 ML SUSPENSION UDCUP PO PRN (10:00)
[2020-10-06] MEDS ORDERED: IBUPROFEN 400 MG TABLET PO PRN (10:00)
[2020-10-06] MEDS ORDERED: ACETAMINOPHEN 325 MG TABLET PO PRN (10:00)
[2020-10-06] MEDS ORDERED: NICOTINE 14 MG/24 HOUR PATCH TD PRN (10:00)
[2020-10-06] MEDS ORDERED: CloNIDine HCL 0.1 MG TABLET PO PRN (10:00)
[2020-10-06] MEDS ORDERED: LOPERAMIDE HCL 2 MG CAPSULE PO PRN (10:00)
[2020-10-06] MEDS ORDERED: ALBUTEROL SULFATE HFA 90 MCG/PUFF 8 GM INHALER IH PRN (10:00)
[2020-10-06] MEDS ORDERED: DOCUSATE SODIUM 100 MG CAPSULE PO PRN (10:00)
[2020-10-06] MEDS ORDERED: GuaiFENesin/D-METHORPHAN [SUGAR-FREE] 200-20MG/10 ML SYRUP UDCUP PO PRN (10:00)
[2020-10-06] MEDS ORDERED: MAGNESIUM HYDROXIDE SUSPENSION 30 ML UDCUP PO PRN (10:00)
[2020-10-06] MEDS ORDERED: ONDANSETRON HCL 4 MG TABLET PO PRN (10:00)
[2020-10-06] MEDS: QUEtiapine FUMARATE 200 MG TABLET PO SCH (20:32)
[2020-10-07 01:37] VITALS: BP 122/78
[2020-10-07] MEDS: LORazepam 2 MG TABLET PO PRN ×3 (08:25→18:51)
[2020-10-07 08:33] VITALS: BP 108/62
[2020-10-07] MEDS: NICOTINE 14 MG/24 HOUR PATCH TD SCH (08:46)
[2020-10-07] MEDS: QUEtiapine FUMARATE 25 MG TABLET PO SCH ×3 (08:46→16:35)
[2020-10-07] MEDS: BuPROPion HCL 100 MG SR TABLET PO SCH ×2 (08:46→16:34)
[2020-10-07 16:24] VITALS: BP 108/64
[2020-10-07] MEDS: QUEtiapine FUMARATE 200 MG TABLET PO SCH (20:32)
[2020-10-07] MEDS: ZOLPIDEM TARTRATE 10 MG TABLET PO PRN (21:49)
[2020-10-08 01:11] VITALS: BP 105/52
[2020-10-08 08:20] VITALS: BP 108/63
[2020-10-08] MEDS: BuPROPion HCL 100 MG SR TABLET PO SCH ×2 (08:45→16:35)
[2020-10-08] MEDS: LORazepam 2 MG TABLET PO PRN ×3 (08:45→18:28)
[2020-10-08] MEDS: NICOTINE 14 MG/24 HOUR PATCH TD SCH (08:45)
[2020-10-08] MEDS: QUEtiapine FUMARATE 25 MG TABLET PO SCH ×3 (08:45→16:35)
[2020-10-08 16:05] VITALS: BP 119/66
[2020-10-08] MEDS: QUEtiapine FUMARATE 200 MG TABLET PO SCH (20:14)
[2020-10-08] MEDS: ZOLPIDEM TARTRATE 10 MG TABLET PO PRN (20:14)
[2020-10-09 02:26] VITALS: BP 115/62
[2020-10-09 08:21] VITALS: BP 110/61
[2020-10-09] MEDS: NICOTINE 14 MG/24 HOUR PATCH TD SCH (09:10)
[2020-10-09] MEDS: QUEtiapine FUMARATE 25 MG TABLET PO SCH ×3 (09:10→17:12)
[2020-10-09] MEDS: BuPROPion HCL 100 MG SR TABLET PO SCH ×2 (09:11→17:12)
[2020-10-09] MEDS: LORazepam 2 MG TABLET PO PRN ×3 (09:32→17:38)
[2020-10-09 16:00] VITALS: BP 115/62
[2020-10-09 16:27] VITALS: BP 123/78
[2020-10-09] MEDS: QUEtiapine FUMARATE 200 MG TABLET PO SCH (20:47)
[2020-10-09 21:00] VITALS: BP 119/77
[2020-10-10 05:36] VITALS: BP 102/61
[2020-10-10 08:14] VITALS: BP 105/61
[2020-10-10 08:20] VITALS: BP 105/61
[2020-10-10] MEDS: LORazepam 2 MG TABLET PO PRN (08:20)
[2020-10-10] MEDS: BuPROPion HCL 100 MG SR TABLET PO SCH (09:00)
[2020-10-10] MEDS: NICOTINE 14 MG/24 HOUR PATCH TD SCH (09:15)
[2020-10-10] MEDS: QUEtiapine FUMARATE 25 MG TABLET PO SCH ×3 (09:15→16:56)
[2020-10-10] MEDS: MULTIVITAMINS WITH MINERALS, THERAPEUTIC TABLET PO SCH (11:32)
[2020-10-10] MEDS: BuPROPion HCL 100 MG TABLET PO SCH ×2 (12:21→16:56)
[2020-10-10 16:13] VITALS: BP 112/68
[2020-10-10] MEDS: QUEtiapine FUMARATE 200 MG TABLET PO SCH (20:36)
[2020-10-11 05:33] VITALS: BP 118/70
[2020-10-11 08:17] VITALS: BP 130/74
[2020-10-11] MEDS: QUEtiapine FUMARATE 25 MG TABLET PO SCH ×3 (09:14→16:04)
[2020-10-11] MEDS: MULTIVITAMINS WITH MINERALS, THERAPEUTIC TABLET PO SCH (09:14)
[2020-10-11] MEDS: NICOTINE 14 MG/24 HOUR PATCH TD SCH (09:14)
[2020-10-11] MEDS: BuPROPion HCL 100 MG TABLET PO SCH ×3 (09:15→16:04)
[2020-10-11] MEDS: LORazepam 2 MG TABLET PO PRN ×3 (09:15→20:19)
[2020-10-11 14:53] LABS: COVID AG,FIA SOURCE NASOPHARYNGEAL
[2020-10-11 16:00] VITALS: BP 130/75
[2020-10-11 16:30] VITALS: BP 108/62
[2020-10-11] MEDS: QUEtiapine FUMARATE 200 MG TABLET PO SCH (20:18)
[2020-10-11 21:51] VITALS: BP 130/79
[2020-10-12 01:36] VITALS: BP 129/78
[2020-10-12 08:22] VITALS: BP 131/75
[2020-10-12] MEDS: BuPROPion HCL 100 MG TABLET PO SCH ×3 (08:30→16:09)
[2020-10-12] MEDS: NICOTINE 14 MG/24 HOUR PATCH TD SCH (08:30)
[2020-10-12] MEDS: MULTIVITAMINS WITH MINERALS, THERAPEUTIC TABLET PO SCH (08:30)
[2020-10-12] MEDS: QUEtiapine FUMARATE 25 MG TABLET PO SCH ×3 (08:31→16:09)
[2020-10-12] MEDS: LORazepam 2 MG TABLET PO PRN ×3 (08:38→20:17)
[2020-10-12 09:01] VITALS: BP 131/75
[2020-10-12 16:07] VITALS: BP 122/82
[2020-10-12] MEDS: QUEtiapine FUMARATE 200 MG TABLET PO SCH (20:17)
[2020-10-12] MEDS: ZOLPIDEM TARTRATE 10 MG TABLET PO PRN (22:58)
[2020-10-13 00:53] VITALS: BP 127/79
[2020-10-13] MEDS: NICOTINE 14 MG/24 HOUR PATCH TD SCH (09:02)
[2020-10-13] MEDS: MULTIVITAMINS WITH MINERALS, THERAPEUTIC TABLET PO SCH (09:02)
[2020-10-13] MEDS: QUEtiapine FUMARATE 25 MG TABLET PO SCH ×3 (09:02→16:37)
[2020-10-13] MEDS: BuPROPion HCL 100 MG TABLET PO SCH (09:02)
[2020-10-13] MEDS: LORazepam 2 MG TABLET PO PRN ×3 (09:19→22:34)
[2020-10-13 10:14] VITALS: BP_SYST 107; BP_SYST 119; BP_DIAS 68; BP_DIAS 73
[2020-10-13] MEDS: BuPROPion HCL 75 MG TABLET PO SCH ×2 (12:54→16:37)
[2020-10-13 16:16] VITALS: BP 118/81
[2020-10-13] MEDS: QUEtiapine FUMARATE 200 MG TABLET PO SCH (20:38)
[2020-10-14 01:07] VITALS: BP 114/71
[2020-10-14 08:15] VITALS: BP 111/66
[2020-10-14] MEDS: NICOTINE 14 MG/24 HOUR PATCH TD SCH (08:48)
[2020-10-14] MEDS: LORazepam 2 MG TABLET PO PRN ×2 (08:49→15:59)
[2020-10-14] MEDS: MULTIVITAMINS WITH MINERALS, THERAPEUTIC TABLET PO SCH (08:49)
[2020-10-14] MEDS: QUEtiapine FUMARATE 25 MG TABLET PO SCH ×3 (08:49→16:30)
[2020-10-14] MEDS: BuPROPion HCL 75 MG TABLET PO SCH ×3 (08:49→16:30)
[2020-10-14 16:12] VITALS: BP 121/75
[2020-10-14] MEDS: QUEtiapine FUMARATE 200 MG TABLET PO SCH (20:27)
[2020-10-15 01:16] VITALS: BP 120/73
[2020-10-15] MEDS: LORazepam 2 MG TABLET PO PRN (06:34)
[2020-10-15 08:13] VITALS: BP 122/72
[2020-10-15] MEDS: MULTIVITAMINS WITH MINERALS, THERAPEUTIC TABLET PO SCH (08:53)
[2020-10-15] MEDS: QUEtiapine FUMARATE 25 MG TABLET PO SCH ×2 (08:53→12:33)
[2020-10-15] MEDS: BuPROPion HCL 75 MG TABLET PO SCH ×2 (08:54→12:33)
[2020-10-15] MEDS: NICOTINE 14 MG/24 HOUR PATCH TD SCH (08:54)
[2020-10-15] MEDS ORDERED: QUET50TA PO (11:33)
[2020-10-15] MEDS ORDERED: BUPR75 PO (11:33)
[2020-10-15] MEDS ORDERED: QUET200T30 PO (11:33)
== END 2020-10-15 12:55 | disposition home or self-care (01) | DRG 750 ==
LOC: EMS 14:50 → B2S 17:08
DX: F25.1 Schizoaffective disorder, depressive type (principal); R45.851 Suicidal ideations; Z59.0 Homelessness; F31.9 Bipolar disorder, unspecified; F41.9 Anxiety disorder, unspecified; R10.13 Epigastric pain; R03.0 Elevated blood-pressure reading, without diagnosis of hypertension; G47.00 Insomnia, unspecified; Z65.3 Problems related to other legal circumstances; Z79.899 Other long term (current) drug therapy; Z81.8 Family history of other mental and behavioral disorders; Z86.16 Personal history of COVID-19; Z87.01 Personal history of pneumonia (recurrent); Z87.891 Personal history of nicotine dependence; Z91.5 Personal history of self-harm; Z20.822 Contact with and (suspected) exposure to COVID-19
CPT/HCPCS: 80053; 80061; 84439; 84443; 85025; 99285; G0480

== ENCOUNTER 2021-08-09 19:14 | Inpatient (IN) | payer MEDICAID ==
[~2021-08-09] VITALS: Ht 175.3 cm; Wt 89.8 kg
[~2021-08-09 19:14] MED LIST changes: +BUPR-344 PO; -BUPR100SR PO
[2021-08-09] MEDS ORDERED: ACETAMINOPHEN 325 MG TABLET PO PRN (23:00)
[2021-08-09] MEDS ORDERED: PNEUMOCOCCAL VACCINE POLYVALENT 0.5 ML VIAL [PPSV23] IM. ONE (23:15)
[2021-08-09 23:56] VITALS: BP 125/64
[2021-08-10] MEDS: QUEtiapine FUMARATE 100 MG TABLET PO PRN (00:04)
[2021-08-10] MEDS: LORazepam 2 MG TABLET PO PRN ×3 (00:04→17:40)
[2021-08-10 08:39] VITALS: BP 114/63
[2021-08-10] MEDS: METHADONE HCL 10 MG TABLET PO SCH (09:24)
[2021-08-10] MEDS ORDERED: CloNIDine HCL 0.1 MG TABLET PO PRN (09:30)
[2021-08-10] MEDS ORDERED: GuaiFENesin/D-METHORPHAN [SUGAR-FREE] 200-20MG/10 ML SYRUP UDCUP PO PRN (09:30)
[2021-08-10] MEDS ORDERED: ALBUTEROL SULFATE HFA 90 MCG/PUFF 8 GM INHALER IH PRN (09:30)
[2021-08-10] MEDS ORDERED: NICOTINE 14 MG/24 HOUR PATCH TD PRN (09:30)
[2021-08-10] MEDS ORDERED: ONDANSETRON HCL 4 MG TABLET PO PRN (09:30)
[2021-08-10] MEDS ORDERED: DOCUSATE SODIUM 100 MG CAPSULE PO PRN (09:30)
[2021-08-10] MEDS ORDERED: LOPERAMIDE HCL 2 MG CAPSULE PO PRN (09:30)
[2021-08-10] MEDS ORDERED: PETROLATUM,WHITE 28 GM JELLY TP PRN (09:30)
[2021-08-10] MEDS: BACITRACIN 28 GM OINTMENT TP SCH ×2 (13:56→16:19)
[2021-08-10] MEDS: QUEtiapine FUMARATE 25 MG TABLET PO SCH (16:19)
[2021-08-10] MEDS: BusPIRone HCL 15 MG TABLET PO SCH (16:19)
[2021-08-10] MEDS: BuPROPion HCL 150 MG SR TABLET PO SCH (16:19)
[2021-08-10 17:42] VITALS: BP 124/76
[2021-08-10] MEDS: QUEtiapine FUMARATE 300 MG TABLET PO SCH (20:22)
[2021-08-10 20:36] VITALS: BP 122/61
[2021-08-11 08:25] VITALS: BP 116/88
[2021-08-11] MEDS: BusPIRone HCL 15 MG TABLET PO SCH ×2 (08:27→16:14)
[2021-08-11] MEDS: BuPROPion HCL 150 MG SR TABLET PO SCH ×2 (08:27→16:14)
[2021-08-11] MEDS: METHADONE HCL 10 MG TABLET PO SCH (08:28)
[2021-08-11] MEDS: BACITRACIN 28 GM OINTMENT TP SCH ×2 (08:30→16:27)
[2021-08-11] MEDS: QUEtiapine FUMARATE 25 MG TABLET PO SCH ×2 (08:35→16:14)
[2021-08-11] MEDS: LORazepam 2 MG TABLET PO PRN ×3 (10:56→22:32)
[2021-08-11] MEDS: NICOTINE POLACRILEX 2 MG LOZENGE PO PRN (14:29)
[2021-08-11 17:00] VITALS: BP 115/75
[2021-08-11] MEDS: QUEtiapine FUMARATE 300 MG TABLET PO SCH (20:03)
[2021-08-11 20:13] VITALS: BP 127/72
[2021-08-12 06:57] LABS: APPEARANCE,URINE CLEAR (CLEAR); BILIRUBIN,URINE NEGATIVE (NEGATIVE); GLUCOSE, URINE (UA) NEGATIVE (NEGATIVE); KETONES,URINE NEGATIVE (NEGATIVE); LEUKOCYTE ESTERASE ,URINE NEGATIVE (NEGATIVE); NITRATE,URINE NEGATIVE (NEGATIVE); OCCULT BLOOD,URINE NEGATIVE (NEGATIVE); PROTEIN,URINE NEGATIVE (NEGATIVE); SPECIFIC GRAVITIY, URINE 1.014 (1.003-1.030); UROBILINOGEN,URINE <=1.0 mg/dL (<=1.0)
[2021-08-12 07:05] LABS: AMPHET/METH SCREEN,URINE NEGATIVE (NEGATIVE); BARBITURATE SCREEN, URINE NEGATIVE (NEGATIVE); BENZODIAZEPINES SCREEN,URINE NEGATIVE (NEGATIVE); CANNABINOID SCREEN,URINE NEGATIVE (NEGATIVE); COCAINE SCREEN,URINE NEGATIVE (NEGATIVE); METHADONE SCREEN, URINE POSITIVE (NEGATIVE); OPIATE SCREEN,URINE NEGATIVE (NEGATIVE)
[2021-08-12 07:10] LABS: PHENCYCLIDINE SCREEN,URINE NEGATIVE (NEGATIVE)
[2021-08-12 08:32] VITALS: BP 111/61
[2021-08-12] MEDS: BuPROPion HCL 150 MG SR TABLET PO SCH ×2 (09:11→17:02)
[2021-08-12] MEDS: BusPIRone HCL 15 MG TABLET PO SCH ×2 (09:11→17:02)
[2021-08-12] MEDS: METHADONE HCL 10 MG TABLET PO SCH (09:12)
[2021-08-12] MEDS: QUEtiapine FUMARATE 25 MG TABLET PO SCH (09:16)
[2021-08-12] MEDS: BACITRACIN 28 GM OINTMENT TP SCH ×2 (09:17→17:02)
[2021-08-12] MEDS: LORazepam 2 MG TABLET PO PRN ×2 (10:53→16:05)
[2021-08-12] MEDS: NICOTINE POLACRILEX 2 MG LOZENGE PO PRN (13:20)
[2021-08-12 16:05] VITALS: BP 130/72
[2021-08-12] MEDS: QUEtiapine FUMARATE 100 MG TABLET PO PRN (17:15)
[2021-08-12] MEDS: QUEtiapine FUMARATE 200 MG TABLET PO SCH (20:07)
[2021-08-12 20:16] VITALS: BP 135/86
[2021-08-12] MEDS: ZOLPIDEM TARTRATE 10 MG TABLET PO PRN (21:58)
[2021-08-13 08:08] VITALS: BP 127/75
[2021-08-13] MEDS: BusPIRone HCL 15 MG TABLET PO SCH ×2 (08:38→16:06)
[2021-08-13] MEDS: METHADONE HCL 10 MG TABLET PO SCH (08:38)
[2021-08-13] MEDS: MULTIVITAMINS WITH MINERALS, THERAPEUTIC TABLET PO SCH (08:39)
[2021-08-13] MEDS: BuPROPion HCL 150 MG SR TABLET PO SCH ×2 (08:39→16:06)
[2021-08-13] MEDS: BACITRACIN 28 GM OINTMENT TP SCH ×2 (08:43→16:06)
[2021-08-13] MEDS: LORazepam 2 MG TABLET PO PRN ×2 (12:57→20:03)
[2021-08-13] MEDS: NICOTINE POLACRILEX 2 MG LOZENGE PO PRN (13:46)
[2021-08-13 16:10] VITALS: BP 129/79
[2021-08-13] MEDS: IBUPROFEN 400 MG TABLET PO PRN (16:12)
[2021-08-13] MEDS: QUEtiapine FUMARATE 200 MG TABLET PO SCH (20:03)
[2021-08-13] MEDS: PRAZOSIN HCL 1 MG CAPSULE PO SCH (20:16)
[2021-08-13 20:35] VITALS: BP 134/84
[2021-08-14 08:25] VITALS: BP 122/73
[2021-08-14] MEDS: BusPIRone HCL 15 MG TABLET PO SCH ×2 (08:28→16:38)
[2021-08-14] MEDS: MULTIVITAMINS WITH MINERALS, THERAPEUTIC TABLET PO SCH (08:28)
[2021-08-14] MEDS: BACITRACIN 28 GM OINTMENT TP SCH ×2 (08:28→16:39)
[2021-08-14] MEDS: BuPROPion HCL 150 MG SR TABLET PO SCH ×2 (08:28→16:38)
[2021-08-14] MEDS: METHADONE HCL 10 MG TABLET PO SCH (08:28)
[2021-08-14 08:51] LABS: GLUCOMETER DEV NAME(LOC) POC.BV
[2021-08-14] MEDS: LORazepam 2 MG TABLET PO PRN ×3 (10:12→19:39)
[2021-08-14] MEDS: IBUPROFEN 400 MG TABLET PO PRN (12:25)
[2021-08-14] MEDS: QUEtiapine FUMARATE 100 MG TABLET PO PRN (18:13)
[2021-08-14 20:16] VITALS: BP 135/61
[2021-08-14 20:39] VITALS: BP 125/68
[2021-08-14] MEDS: QUEtiapine FUMARATE 200 MG TABLET PO SCH (20:40)
[2021-08-14] MEDS: PRAZOSIN HCL 1 MG CAPSULE PO SCH (20:40)
[2021-08-15 09:40] VITALS: BP 128/72
[2021-08-15] MEDS: BusPIRone HCL 15 MG TABLET PO SCH ×2 (09:42→16:54)
[2021-08-15] MEDS: METHADONE HCL 10 MG TABLET PO SCH (09:42)
[2021-08-15] MEDS: MULTIVITAMINS WITH MINERALS, THERAPEUTIC TABLET PO SCH (09:42)
[2021-08-15] MEDS: BuPROPion HCL 150 MG SR TABLET PO SCH ×2 (09:42→16:54)
[2021-08-15] MEDS: BACITRACIN 28 GM OINTMENT TP SCH ×2 (09:43→16:57)
[2021-08-15] MEDS: LORazepam 2 MG TABLET PO PRN ×2 (11:34→16:03)
[2021-08-15] MEDS: ACETAMINOPHEN 325 MG TABLET PO PRN ×2 (14:17→16:56)
[2021-08-15 16:03] VITALS: BP 124/62
[2021-08-15] MEDS: QUEtiapine FUMARATE 100 MG TABLET PO PRN (16:56)
[2021-08-15 20:26] VITALS: BP 123/60
[2021-08-15] MEDS: PRAZOSIN HCL 1 MG CAPSULE PO SCH (20:26)
[2021-08-15] MEDS: QUEtiapine FUMARATE 200 MG TABLET PO SCH (20:27)
[2021-08-15] MEDS: MAGNESIUM HYDROXIDE SUSPENSION 30 ML UDCUP PO PRN (20:27)
[2021-08-16] MEDS: METHADONE HCL 10 MG TABLET PO SCH (09:17)
[2021-08-16] MEDS: BuPROPion HCL 150 MG SR TABLET PO SCH ×2 (09:17→16:58)
[2021-08-16] MEDS: MULTIVITAMINS WITH MINERALS, THERAPEUTIC TABLET PO SCH (09:18)
[2021-08-16] MEDS: BusPIRone HCL 15 MG TABLET PO SCH ×2 (09:18→16:58)
[2021-08-16] MEDS: BACITRACIN 28 GM OINTMENT TP SCH ×2 (09:19→16:59)
[2021-08-16 09:33] VITALS: BP 140/96
[2021-08-16] MEDS: LORazepam 2 MG TABLET PO PRN ×3 (10:35→20:08)
[2021-08-16] MEDS: ACETAMINOPHEN 325 MG TABLET PO PRN ×2 (10:37→18:03)
[2021-08-16] MEDS: QUEtiapine FUMARATE 100 MG TABLET PO PRN (17:30)
[2021-08-16] MEDS: QUEtiapine FUMARATE 200 MG TABLET PO SCH (20:08)
[2021-08-16] MEDS: PRAZOSIN HCL 1 MG CAPSULE PO SCH (20:31)
[2021-08-16 20:45] VITALS: BP 126/71
[2021-08-17 08:26] VITALS: BP 113/69
[2021-08-17] MEDS: MULTIVITAMINS WITH MINERALS, THERAPEUTIC TABLET PO SCH (08:55)
[2021-08-17] MEDS: BuPROPion HCL 150 MG SR TABLET PO SCH ×2 (08:55→16:43)
[2021-08-17] MEDS: METHADONE HCL 10 MG TABLET PO SCH (08:55)
[2021-08-17] MEDS: BusPIRone HCL 15 MG TABLET PO SCH ×2 (08:55→16:43)
[2021-08-17] MEDS: BACITRACIN 28 GM OINTMENT TP SCH ×2 (08:56→16:43)
[2021-08-17] MEDS: LORazepam 2 MG TABLET PO PRN ×2 (09:28→14:10)
[2021-08-17] MEDS: HydrOXYzine PAMOATE 50 MG CAPSULE PO PRN (14:10)
[2021-08-17] MEDS: MAG HYDROX/AL HYDROX/SIMETH ES 30 ML SUSPENSION UDCUP PO PRN (18:20)
[2021-08-17] MEDS: QUEtiapine FUMARATE 100 MG TABLET PO PRN (18:50)
[2021-08-17] MEDS: PRAZOSIN HCL 2 MG CAPSULE PO SCH (20:11)
[2021-08-17] MEDS: QUEtiapine FUMARATE 200 MG TABLET PO SCH (20:11)
[2021-08-17 20:28] VITALS: BP 148/93
[2021-08-18] MEDS: BuPROPion HCL 150 MG SR TABLET PO SCH ×2 (08:21→16:37)
[2021-08-18] MEDS: MULTIVITAMINS WITH MINERALS, THERAPEUTIC TABLET PO SCH (08:21)
[2021-08-18] MEDS: BusPIRone HCL 15 MG TABLET PO SCH ×2 (08:21→16:37)
[2021-08-18] MEDS: METHADONE HCL 10 MG TABLET PO SCH (08:21)
[2021-08-18] MEDS: BACITRACIN 28 GM OINTMENT TP SCH ×2 (08:22→16:37)
[2021-08-18 08:51] VITALS: BP 110/74
[2021-08-18] MEDS: LORazepam 2 MG TABLET PO PRN ×2 (11:18→15:50)
[2021-08-18] MEDS: NICOTINE POLACRILEX 2 MG LOZENGE PO PRN ×2 (11:18→19:41)
[2021-08-18] MEDS: HydrOXYzine PAMOATE 50 MG CAPSULE PO PRN (12:32)
[2021-08-18 15:50] VITALS: BP 109/65
[2021-08-18] MEDS ORDERED: *NON-FORMULARY MED [ENTER DRUG, DOSE, FREQ IN COMMENTS] CLINICAL ONE (18:00)
[2021-08-18] MEDS: QUEtiapine FUMARATE 100 MG TABLET PO PRN (18:48)
[2021-08-18 20:35] VITALS: BP 124/72
[2021-08-18] MEDS: PRAZOSIN HCL 2 MG CAPSULE PO SCH (20:35)
[2021-08-18] MEDS: QUEtiapine FUMARATE 200 MG TABLET PO SCH (20:35)
[2021-08-19 08:40] VITALS: BP 110/66
[2021-08-19] MEDS: BusPIRone HCL 15 MG TABLET PO SCH ×2 (09:17→16:45)
[2021-08-19] MEDS: BuPROPion HCL 150 MG SR TABLET PO SCH ×2 (09:18→16:45)
[2021-08-19] MEDS: METHADONE HCL 10 MG TABLET PO SCH (09:18)
[2021-08-19] MEDS: MULTIVITAMINS WITH MINERALS, THERAPEUTIC TABLET PO SCH (09:18)
[2021-08-19] MEDS: BACITRACIN 28 GM OINTMENT TP SCH ×2 (09:19→16:45)
[2021-08-19] MEDS: LORazepam 2 MG TABLET PO PRN ×3 (09:53→18:56)
[2021-08-19] MEDS: IBUPROFEN 400 MG TABLET PO PRN (10:54)
[2021-08-19] MEDS: NICOTINE POLACRILEX 2 MG LOZENGE PO PRN ×2 (10:54→20:48)
[2021-08-19 20:29] VITALS: BP 124/74
[2021-08-19 20:55] VITALS: BP 129/76
[2021-08-19] MEDS: QUEtiapine FUMARATE 300 MG TABLET PO SCH (20:56)
[2021-08-19] MEDS: PRAZOSIN HCL 2 MG CAPSULE PO SCH (20:56)
[2021-08-19] MEDS: MAG HYDROX/AL HYDROX/SIMETH ES 30 ML SUSPENSION UDCUP PO PRN (21:09)
[2021-08-20 08:20] VITALS: BP 104/64
[2021-08-20] MEDS: MULTIVITAMINS WITH MINERALS, THERAPEUTIC TABLET PO SCH (09:15)
[2021-08-20] MEDS: BuPROPion HCL 150 MG SR TABLET PO SCH ×2 (09:15→16:06)
[2021-08-20] MEDS: BusPIRone HCL 15 MG TABLET PO SCH ×2 (09:15→16:06)
[2021-08-20] MEDS: METHADONE HCL 10 MG TABLET PO SCH (09:16)
[2021-08-20] MEDS: BACITRACIN 28 GM OINTMENT TP SCH ×2 (09:18→16:06)
[2021-08-20] MEDS: LORazepam 2 MG TABLET PO PRN ×2 (10:07→14:53)
[2021-08-20] MEDS: NICOTINE POLACRILEX 2 MG LOZENGE PO PRN ×2 (10:09→20:34)
[2021-08-20] MEDS: HydrOXYzine PAMOATE 50 MG CAPSULE PO PRN ×2 (12:46→20:34)
[2021-08-20] MEDS: LIDOCAINE TP SCH (13:22)
[2021-08-20 16:06] VITALS: BP_SYST 116; BP_SYST 121; BP_DIAS 70; BP_DIAS 75
[2021-08-20] MEDS: QUEtiapine FUMARATE 100 MG TABLET PO PRN (17:24)
[2021-08-20 20:31] VITALS: BP 121/70
[2021-08-20] MEDS: PRAZOSIN HCL 2 MG CAPSULE PO SCH (20:34)
[2021-08-20] MEDS: QUEtiapine FUMARATE 300 MG TABLET PO SCH (20:34)
[2021-08-21] MEDS: BusPIRone HCL 15 MG TABLET PO SCH ×2 (09:06→16:11)
[2021-08-21] MEDS: MULTIVITAMINS WITH MINERALS, THERAPEUTIC TABLET PO SCH (09:06)
[2021-08-21] MEDS: METHADONE HCL 10 MG TABLET PO SCH (09:07)
[2021-08-21] MEDS: BuPROPion HCL 150 MG SR TABLET PO SCH ×2 (09:07→16:11)
[2021-08-21 09:10] VITALS: BP 122/66
[2021-08-21] MEDS: LIDOCAINE TP SCH (09:12)
[2021-08-21] MEDS: BACITRACIN 28 GM OINTMENT TP SCH ×2 (09:13→16:11)
[2021-08-21] MEDS: NICOTINE POLACRILEX 2 MG LOZENGE PO PRN ×2 (09:55→20:20)
[2021-08-21] MEDS: LORazepam 2 MG TABLET PO PRN ×2 (10:33→14:44)
[2021-08-21 11:06] LABS: GLUCOMETER DEV NAME(LOC) POC.BV
[2021-08-21] MEDS: HydrOXYzine PAMOATE 50 MG CAPSULE PO PRN (12:38)
[2021-08-21] MEDS: QUEtiapine FUMARATE 100 MG TABLET PO PRN (17:08)
[2021-08-21] MEDS: PRAZOSIN HCL 2 MG CAPSULE PO SCH (20:20)
[2021-08-21] MEDS: QUEtiapine FUMARATE 300 MG TABLET PO SCH (20:20)
[2021-08-21 20:24] VITALS: BP 128/72
[2021-08-21] MEDS: ZOLPIDEM TARTRATE 10 MG TABLET PO PRN (23:46)
[2021-08-22] VITALS: BP 112/73
[2021-08-22 09:06] VITALS: BP 122/68
[2021-08-22] MEDS: METHADONE HCL 10 MG TABLET PO SCH (09:11)
[2021-08-22] MEDS: MULTIVITAMINS WITH MINERALS, THERAPEUTIC TABLET PO SCH (09:11)
[2021-08-22] MEDS: BusPIRone HCL 15 MG TABLET PO SCH ×2 (09:11→16:26)
[2021-08-22] MEDS: BuPROPion HCL 150 MG SR TABLET PO SCH ×2 (09:11→16:26)
[2021-08-22] MEDS: LIDOCAINE TP SCH (09:12)
[2021-08-22] MEDS: BACITRACIN 28 GM OINTMENT TP SCH ×2 (09:14→16:27)
[2021-08-22] MEDS: LORazepam 2 MG TABLET PO PRN ×2 (10:39→15:23)
[2021-08-22] MEDS: NICOTINE POLACRILEX 2 MG LOZENGE PO PRN (10:39)
[2021-08-22] MEDS: QUEtiapine FUMARATE 100 MG TABLET PO PRN (17:05)
[2021-08-22 20:25] VITALS: BP 113/76
[2021-08-22] MEDS: QUEtiapine FUMARATE 300 MG TABLET PO SCH (20:25)
[2021-08-22] MEDS: PRAZOSIN HCL 1 MG CAPSULE PO SCH (20:25)
[2021-08-23] MEDS: ZOLPIDEM TARTRATE 10 MG TABLET PO PRN (00:57)
[2021-08-23 08:21] VITALS: BP 120/74
[2021-08-23] MEDS: METHADONE HCL 10 MG TABLET PO SCH (08:41)
[2021-08-23] MEDS: MULTIVITAMINS WITH MINERALS, THERAPEUTIC TABLET PO SCH (08:41)
[2021-08-23] MEDS: BuPROPion HCL 150 MG SR TABLET PO SCH ×2 (08:41→17:03)
[2021-08-23] MEDS: BusPIRone HCL 15 MG TABLET PO SCH ×2 (08:41→17:03)
[2021-08-23] MEDS: LIDOCAINE TP SCH (08:42)
[2021-08-23] MEDS: BACITRACIN 28 GM OINTMENT TP SCH ×2 (08:42→17:03)
[2021-08-23] MEDS: NICOTINE POLACRILEX 2 MG LOZENGE PO PRN (09:31)
[2021-08-23] MEDS: LORazepam 2 MG TABLET PO PRN ×2 (09:59→14:10)
[2021-08-23] MEDS: HydrOXYzine PAMOATE 50 MG CAPSULE PO PRN (13:01)
[2021-08-23 14:06] VITALS: BP 127/76
[2021-08-23] MEDS: QUEtiapine FUMARATE 100 MG TABLET PO PRN (17:08)
[2021-08-23 20:27] VITALS: BP 126/74
[2021-08-23] MEDS: QUEtiapine FUMARATE 300 MG TABLET PO SCH (20:33)
[2021-08-23] MEDS: PRAZOSIN HCL 1 MG CAPSULE PO SCH (20:34)
[2021-08-24 08:52] VITALS: BP 116/61
[2021-08-24] MEDS: MULTIVITAMINS WITH MINERALS, THERAPEUTIC TABLET PO SCH (09:15)
[2021-08-24] MEDS: METHADONE HCL 10 MG TABLET PO SCH (09:16)
[2021-08-24] MEDS: LIDOCAINE TP SCH (09:16)
[2021-08-24] MEDS: BACITRACIN 28 GM OINTMENT TP SCH ×2 (09:16→17:00)
[2021-08-24] MEDS: BuPROPion HCL 150 MG SR TABLET PO SCH ×2 (09:57→17:00)
[2021-08-24] MEDS: BusPIRone HCL 15 MG TABLET PO SCH ×2 (09:57→17:28)
[2021-08-24] MEDS: LORazepam 2 MG TABLET PO PRN (13:22)
[2021-08-24] MEDS: NICOTINE POLACRILEX 2 MG LOZENGE PO PRN (13:23)
[2021-08-24] MEDS: HydrOXYzine PAMOATE 50 MG CAPSULE PO PRN (16:18)
[2021-08-24] MEDS: QUEtiapine FUMARATE 300 MG TABLET PO SCH (20:31)
[2021-08-24] MEDS: PRAZOSIN HCL 1 MG CAPSULE PO SCH (20:31)
[2021-08-24 20:41] VITALS: BP 116/71
[2021-08-25 08:57] VITALS: BP 110/66
[2021-08-25] MEDS: MULTIVITAMINS WITH MINERALS, THERAPEUTIC TABLET PO SCH (09:13)
[2021-08-25] MEDS: METHADONE HCL 10 MG TABLET PO SCH (09:14)
[2021-08-25] MEDS: BusPIRone HCL 15 MG TABLET PO SCH ×2 (09:14→17:17)
[2021-08-25] MEDS: BuPROPion HCL 150 MG SR TABLET PO SCH ×2 (09:14→17:17)
[2021-08-25] MEDS: LIDOCAINE TP SCH (09:20)
[2021-08-25] MEDS: BACITRACIN 28 GM OINTMENT TP SCH ×2 (10:01→17:17)
[2021-08-25] MEDS: IBUPROFEN 400 MG TABLET PO PRN (10:07)
[2021-08-25] MEDS: LORazepam 2 MG TABLET PO PRN ×2 (10:32→16:21)
[2021-08-25] MEDS: NICOTINE POLACRILEX 2 MG LOZENGE PO PRN (12:53)
[2021-08-25] MEDS: QUEtiapine FUMARATE 100 MG TABLET PO PRN (17:20)
[2021-08-25] MEDS: PRAZOSIN HCL 1 MG CAPSULE PO SCH (20:27)
[2021-08-25] MEDS: QUEtiapine FUMARATE 300 MG TABLET PO SCH (20:27)
[2021-08-25 20:33] VITALS: BP 112/68
[2021-08-26] MEDS: MULTIVITAMINS WITH MINERALS, THERAPEUTIC TABLET PO SCH (08:24)
[2021-08-26] MEDS: METHADONE HCL 10 MG TABLET PO SCH (08:24)
[2021-08-26] MEDS: BusPIRone HCL 15 MG TABLET PO SCH ×2 (08:24→16:49)
[2021-08-26] MEDS: BuPROPion HCL 150 MG SR TABLET PO SCH ×2 (08:24→16:49)
[2021-08-26 08:40] VITALS: BP 118/64
[2021-08-26] MEDS: NICOTINE POLACRILEX 2 MG LOZENGE PO PRN ×2 (09:37→17:58)
[2021-08-26] MEDS: LORazepam 2 MG TABLET PO PRN (09:37)
[2021-08-26] MEDS: BACITRACIN 28 GM OINTMENT TP SCH ×2 (10:22→16:49)
[2021-08-26] MEDS: LIDOCAINE TP SCH (10:23)
[2021-08-26] MEDS: QUEtiapine FUMARATE 100 MG TABLET PO PRN (17:21)
[2021-08-26] MEDS: QUEtiapine FUMARATE 300 MG TABLET PO SCH (20:16)
[2021-08-26] MEDS: PRAZOSIN HCL 1 MG CAPSULE PO SCH (20:16)
[2021-08-26 20:25] VITALS: BP 115/75
[2021-08-27] MEDS: MULTIVITAMINS WITH MINERALS, THERAPEUTIC TABLET PO SCH (08:08)
[2021-08-27] MEDS: BusPIRone HCL 15 MG TABLET PO SCH ×2 (08:08→16:21)
[2021-08-27] MEDS: METHADONE HCL 10 MG TABLET PO SCH (08:08)
[2021-08-27] MEDS: BuPROPion HCL 150 MG SR TABLET PO SCH ×2 (08:08→16:21)
[2021-08-27] MEDS: BACITRACIN 28 GM OINTMENT TP SCH ×2 (08:10→16:25)
[2021-08-27] MEDS: LIDOCAINE TP SCH (08:12)
[2021-08-27 08:52] VITALS: BP 110/66
[2021-08-27] MEDS: NICOTINE POLACRILEX 2 MG LOZENGE PO PRN (08:54)
[2021-08-27] MEDS: LORazepam 2 MG TABLET PO PRN ×2 (08:56→16:21)
[2021-08-27] MEDS: IBUPROFEN 400 MG TABLET PO PRN (10:59)
[2021-08-27] MEDS: HydrOXYzine PAMOATE 50 MG CAPSULE PO PRN (10:59)
[2021-08-27] MEDS: QUEtiapine FUMARATE 100 MG TABLET PO PRN (17:20)
[2021-08-27] MEDS: PRAZOSIN HCL 1 MG CAPSULE PO SCH (20:27)
[2021-08-27] MEDS: QUEtiapine FUMARATE 300 MG TABLET PO SCH (20:27)
[2021-08-27 20:32] VITALS: BP 112/61
[2021-08-28 08:45] VITALS: BP 109/60
[2021-08-28] MEDS: MULTIVITAMINS WITH MINERALS, THERAPEUTIC TABLET PO SCH (08:59)
[2021-08-28] MEDS: BusPIRone HCL 15 MG TABLET PO SCH ×2 (08:59→16:26)
[2021-08-28] MEDS: BuPROPion HCL 150 MG SR TABLET PO SCH ×2 (08:59→16:26)
[2021-08-28] MEDS: METHADONE HCL 10 MG TABLET PO SCH (08:59)
[2021-08-28] MEDS: BACITRACIN 28 GM OINTMENT TP SCH ×2 (09:03→17:03)
[2021-08-28] MEDS: LIDOCAINE TP SCH (09:04)
[2021-08-28 10:26] VITALS: BP 110/76
[2021-08-28] MEDS: NICOTINE POLACRILEX 2 MG LOZENGE PO PRN (11:02)
[2021-08-28] MEDS: LORazepam 2 MG TABLET PO PRN ×2 (11:02→17:14)
[2021-08-28 13:06] LABS: GLUCOMETER DEV NAME(LOC) POC.BV
[2021-08-28] MEDS: MAG HYDROX/AL HYDROX/SIMETH ES 30 ML SUSPENSION UDCUP PO PRN (13:08)
[2021-08-28] MEDS: QUEtiapine FUMARATE 300 MG TABLET PO SCH (20:10)
[2021-08-28] MEDS: PRAZOSIN HCL 1 MG CAPSULE PO SCH (20:11)
[2021-08-28 20:20] VITALS: BP 127/69
[2021-08-29] MEDS: MULTIVITAMINS WITH MINERALS, THERAPEUTIC TABLET PO SCH (08:36)
[2021-08-29] MEDS: BuPROPion HCL 150 MG SR TABLET PO SCH ×2 (08:36→16:32)
[2021-08-29] MEDS: BusPIRone HCL 15 MG TABLET PO SCH ×2 (08:36→16:32)
[2021-08-29] MEDS: METHADONE HCL 10 MG TABLET PO SCH (08:37)
[2021-08-29 08:41] VITALS: BP 130/70
[2021-08-29] MEDS: LIDOCAINE TP SCH (10:15)
[2021-08-29] MEDS: BACITRACIN 28 GM OINTMENT TP SCH ×2 (10:16→16:32)
[2021-08-29] MEDS: LORazepam 2 MG TABLET PO PRN ×2 (10:29→18:04)
[2021-08-29] MEDS: NICOTINE POLACRILEX 2 MG LOZENGE PO PRN ×2 (10:29→18:52)
[2021-08-29] MEDS: MAGNESIUM HYDROXIDE SUSPENSION 30 ML UDCUP PO PRN (12:53)
[2021-08-29] MEDS: ACETAMINOPHEN 325 MG TABLET PO PRN (12:55)
[2021-08-29 20:13] VITALS: BP 111/69
[2021-08-29] MEDS: PRAZOSIN HCL 1 MG CAPSULE PO SCH (20:18)
[2021-08-29] MEDS: QUEtiapine FUMARATE 300 MG TABLET PO SCH (20:18)
[2021-08-30] MEDS: BACITRACIN 28 GM OINTMENT TP SCH ×2 (09:00→17:00)
[2021-08-30 09:15] VITALS: BP 119/68
[2021-08-30] MEDS: MULTIVITAMINS WITH MINERALS, THERAPEUTIC TABLET PO SCH (09:18)
[2021-08-30] MEDS: BuPROPion HCL 150 MG SR TABLET PO SCH ×2 (09:18→16:46)
[2021-08-30] MEDS: BusPIRone HCL 15 MG TABLET PO SCH ×2 (09:18→16:46)
[2021-08-30] MEDS: METHADONE HCL 10 MG TABLET PO SCH (09:18)
[2021-08-30] MEDS: LIDOCAINE TP SCH (09:24)
[2021-08-30] MEDS: LORazepam 2 MG TABLET PO PRN (11:13)
[2021-08-30] MEDS: ACETAMINOPHEN 325 MG TABLET PO PRN (11:13)
[2021-08-30] MEDS: NICOTINE POLACRILEX 2 MG LOZENGE PO PRN (11:13)
[2021-08-30 20:25] VITALS: BP 128/72
[2021-08-30] MEDS: PRAZOSIN HCL 1 MG CAPSULE PO SCH (20:28)
[2021-08-30] MEDS: QUEtiapine FUMARATE 300 MG TABLET PO SCH (20:28)
[2021-08-31 08:47] VITALS: BP 119/71
[2021-08-31] MEDS: BusPIRone HCL 15 MG TABLET PO SCH ×2 (09:09→16:22)
[2021-08-31] MEDS: METHADONE HCL 10 MG TABLET PO SCH (09:09)
[2021-08-31] MEDS: MULTIVITAMINS WITH MINERALS, THERAPEUTIC TABLET PO SCH (09:09)
[2021-08-31] MEDS: BuPROPion HCL 150 MG SR TABLET PO SCH ×2 (09:09→16:22)
[2021-08-31] MEDS: LIDOCAINE TP SCH (09:10)
[2021-08-31] MEDS: BACITRACIN 28 GM OINTMENT TP SCH ×2 (09:11→16:22)
[2021-08-31] MEDS: NICOTINE POLACRILEX 2 MG LOZENGE PO PRN ×2 (11:10→20:25)
[2021-08-31] MEDS: LORazepam 2 MG TABLET PO PRN ×2 (11:10→20:24)
[2021-08-31] MEDS: HydrOXYzine PAMOATE 50 MG CAPSULE PO PRN (16:24)
[2021-08-31] MEDS: PRAZOSIN HCL 1 MG CAPSULE PO SCH (20:24)
[2021-08-31] MEDS: QUEtiapine FUMARATE 300 MG TABLET PO SCH (20:26)
[2021-08-31 20:32] VITALS: BP 123/80
[2021-09-01 08:18] VITALS: BP 117/72
[2021-09-01] MEDS: BusPIRone HCL 15 MG TABLET PO SCH ×2 (09:34→16:28)
[2021-09-01] MEDS: BuPROPion HCL 150 MG SR TABLET PO SCH ×2 (09:34→16:28)
[2021-09-01] MEDS: METHADONE HCL 10 MG TABLET PO SCH (09:34)
[2021-09-01] MEDS: MULTIVITAMINS WITH MINERALS, THERAPEUTIC TABLET PO SCH (09:35)
[2021-09-01] MEDS: BACITRACIN 28 GM OINTMENT TP SCH ×2 (09:36→16:29)
[2021-09-01] MEDS: LIDOCAINE TP SCH (09:37)
[2021-09-01] MEDS: LORazepam 2 MG TABLET PO PRN ×2 (11:01→19:17)
[2021-09-01] MEDS: NICOTINE POLACRILEX 2 MG LOZENGE PO PRN ×2 (11:01→19:22)
[2021-09-01 20:20] VITALS: BP 125/70
[2021-09-01] MEDS: PRAZOSIN HCL 1 MG CAPSULE PO SCH (20:43)
[2021-09-01] MEDS: QUEtiapine FUMARATE 300 MG TABLET PO SCH (20:44)
[2021-09-02] MEDS: BusPIRone HCL 15 MG TABLET PO SCH ×2 (08:16→16:54)
[2021-09-02] MEDS: BuPROPion HCL 150 MG SR TABLET PO SCH ×2 (08:17→16:54)
[2021-09-02] MEDS: METHADONE HCL 10 MG TABLET PO SCH (08:17)
[2021-09-02] MEDS: MULTIVITAMINS WITH MINERALS, THERAPEUTIC TABLET PO SCH (08:17)
[2021-09-02 08:23] VITALS: BP 129/75
[2021-09-02] MEDS: BACITRACIN 28 GM OINTMENT TP SCH ×2 (09:59→16:53)
[2021-09-02] MEDS: LIDOCAINE TP SCH (09:59)
[2021-09-02] MEDS: NICOTINE POLACRILEX 2 MG LOZENGE PO PRN (10:04)
[2021-09-02] MEDS: LORazepam 2 MG TABLET PO PRN ×2 (10:04→18:44)
[2021-09-02 20:29] VITALS: BP 146/78
[2021-09-02] MEDS: PRAZOSIN HCL 1 MG CAPSULE PO SCH (20:37)
[2021-09-02] MEDS: QUEtiapine FUMARATE 300 MG TABLET PO SCH (20:38)
[2021-09-03 08:39] VITALS: BP 126/78
[2021-09-03] MEDS: MULTIVITAMINS WITH MINERALS, THERAPEUTIC TABLET PO SCH (08:58)
[2021-09-03] MEDS: BusPIRone HCL 15 MG TABLET PO SCH ×2 (08:58→16:43)
[2021-09-03] MEDS: BuPROPion HCL 150 MG SR TABLET PO SCH ×2 (08:58→16:43)
[2021-09-03] MEDS: METHADONE HCL 10 MG TABLET PO SCH (08:59)
[2021-09-03] MEDS: LIDOCAINE TP SCH (09:11)
[2021-09-03] MEDS: BACITRACIN 28 GM OINTMENT TP SCH ×2 (09:12→16:43)
[2021-09-03] MEDS: NICOTINE POLACRILEX 2 MG LOZENGE PO PRN (10:57)
[2021-09-03] MEDS: HydrOXYzine PAMOATE 50 MG CAPSULE PO PRN ×2 (10:57→18:45)
[2021-09-03 20:19] VITALS: BP 121/76
[2021-09-03] MEDS: PRAZOSIN HCL 1 MG CAPSULE PO SCH (20:40)
[2021-09-03] MEDS: QUEtiapine FUMARATE 300 MG TABLET PO SCH (20:40)
[2021-09-04] MEDS: METHADONE HCL 10 MG TABLET PO SCH (08:25)
[2021-09-04] MEDS: BuPROPion HCL 150 MG SR TABLET PO SCH ×2 (08:25→16:46)
[2021-09-04] MEDS: MULTIVITAMINS WITH MINERALS, THERAPEUTIC TABLET PO SCH (08:25)
[2021-09-04] MEDS: BusPIRone HCL 15 MG TABLET PO SCH ×2 (08:25→16:46)
[2021-09-04] MEDS: LIDOCAINE TP SCH (08:26)
[2021-09-04 08:38] VITALS: BP 118/88
[2021-09-04] MEDS: BACITRACIN 28 GM OINTMENT TP SCH ×2 (09:00→16:49)
[2021-09-04] MEDS: NICOTINE POLACRILEX 2 MG LOZENGE PO PRN (14:07)
[2021-09-04] MEDS: HydrOXYzine PAMOATE 50 MG CAPSULE PO PRN (14:07)
[2021-09-04] MEDS ORDERED: LORazepam 2 MG TABLET PO PRN (15:00)
[2021-09-04] MEDS: PRAZOSIN HCL 1 MG CAPSULE PO SCH (20:15)
[2021-09-04 20:24] VITALS: BP 131/67
[2021-09-04] MEDS: QUEtiapine FUMARATE 300 MG TABLET PO SCH (21:00)
[2021-09-05] MEDS: BACITRACIN 28 GM OINTMENT TP SCH ×2 (09:00→16:21)
[2021-09-05 09:35] VITALS: BP 120/79
[2021-09-05] MEDS: BuPROPion HCL 150 MG SR TABLET PO SCH ×2 (09:39→16:11)
[2021-09-05] MEDS: MULTIVITAMINS WITH MINERALS, THERAPEUTIC TABLET PO SCH (09:39)
[2021-09-05] MEDS: BusPIRone HCL 15 MG TABLET PO SCH ×2 (09:40→16:11)
[2021-09-05] MEDS: METHADONE HCL 10 MG TABLET PO SCH (09:40)
[2021-09-05] MEDS: LIDOCAINE TP SCH (09:41)
[2021-09-05] MEDS: NICOTINE POLACRILEX 2 MG LOZENGE PO PRN (09:50)
[2021-09-05] MEDS: HydrOXYzine PAMOATE 50 MG CAPSULE PO PRN (13:37)
[2021-09-05] MEDS: PRAZOSIN HCL 1 MG CAPSULE PO SCH (20:07)
[2021-09-05] MEDS: QUEtiapine FUMARATE 300 MG TABLET PO SCH (20:07)
[2021-09-05 20:16] VITALS: BP 123/68
[2021-09-06 05:16] LABS: GLUCOMETER DEV NAME(LOC) POC.BV
[2021-09-06 08:10] VITALS: BP 127/77
[2021-09-06] MEDS: METHADONE HCL 10 MG TABLET PO SCH (08:59)
[2021-09-06] MEDS: BuPROPion HCL 150 MG SR TABLET PO SCH ×2 (09:00→16:34)
[2021-09-06] MEDS: BusPIRone HCL 15 MG TABLET PO SCH ×2 (09:00→16:34)
[2021-09-06] MEDS: MULTIVITAMINS WITH MINERALS, THERAPEUTIC TABLET PO SCH (09:00)
[2021-09-06] MEDS: LIDOCAINE TP SCH (11:22)
[2021-09-06] MEDS: BACITRACIN 28 GM OINTMENT TP SCH ×2 (11:23→16:34)
[2021-09-06 20:21] VITALS: BP 130/73
[2021-09-06] MEDS: QUEtiapine FUMARATE 300 MG TABLET PO SCH (20:34)
[2021-09-06] MEDS: PRAZOSIN HCL 1 MG CAPSULE PO SCH (20:34)
[2021-09-07 08:45] VITALS: BP 123/84
[2021-09-07] MEDS: MULTIVITAMINS WITH MINERALS, THERAPEUTIC TABLET PO SCH (09:17)
[2021-09-07] MEDS: BusPIRone HCL 15 MG TABLET PO SCH ×2 (09:17→16:32)
[2021-09-07] MEDS: BuPROPion HCL 150 MG SR TABLET PO SCH ×2 (09:17→16:32)
[2021-09-07] MEDS: METHADONE HCL 10 MG TABLET PO SCH (09:18)
[2021-09-07] MEDS: LIDOCAINE TP SCH (09:19)
[2021-09-07] MEDS: BACITRACIN 28 GM OINTMENT TP SCH ×2 (09:20→16:31)
[2021-09-07] MEDS: NICOTINE POLACRILEX 2 MG LOZENGE PO PRN ×2 (12:35→20:59)
[2021-09-07 17:48] VITALS: BP 121/77
[2021-09-07 20:38] VITALS: BP 136/75
[2021-09-07] MEDS: QUEtiapine FUMARATE 300 MG TABLET PO SCH (20:53)
[2021-09-07] MEDS: PRAZOSIN HCL 1 MG CAPSULE PO SCH (20:53)
[2021-09-08] MEDS: BusPIRone HCL 15 MG TABLET PO SCH ×2 (08:22→16:08)
[2021-09-08] MEDS: BuPROPion HCL 150 MG SR TABLET PO SCH ×2 (08:22→16:07)
[2021-09-08] MEDS: MULTIVITAMINS WITH MINERALS, THERAPEUTIC TABLET PO SCH (08:22)
[2021-09-08] MEDS: LIDOCAINE TP SCH (08:23)
[2021-09-08] MEDS: METHADONE HCL 10 MG TABLET PO SCH (08:23)
[2021-09-08] MEDS: BACITRACIN 28 GM OINTMENT TP SCH (08:23)
[2021-09-08 08:58] VITALS: BP 112/73
[2021-09-08] MEDS: NICOTINE POLACRILEX 2 MG LOZENGE PO PRN (12:16)
[2021-09-08 20:26] VITALS: BP 131/76
[2021-09-08] MEDS: PRAZOSIN HCL 1 MG CAPSULE PO SCH (20:38)
[2021-09-08] MEDS: QUEtiapine FUMARATE 300 MG TABLET PO SCH (20:39)
[2021-09-09 08:40] VITALS: BP 117/67
[2021-09-09] MEDS: BuPROPion HCL 150 MG SR TABLET PO SCH ×2 (09:26→16:11)
[2021-09-09] MEDS: BusPIRone HCL 15 MG TABLET PO SCH ×2 (09:26→16:11)
[2021-09-09] MEDS: MULTIVITAMINS WITH MINERALS, THERAPEUTIC TABLET PO SCH (09:27)
[2021-09-09] MEDS: METHADONE HCL 10 MG TABLET PO SCH (09:27)
[2021-09-09] MEDS: LIDOCAINE TP SCH (09:46)
[2021-09-09] MEDS: NICOTINE POLACRILEX 2 MG LOZENGE PO PRN (13:16)
[2021-09-09 20:16] VITALS: BP 137/71
[2021-09-09] MEDS: QUEtiapine FUMARATE 300 MG TABLET PO SCH (20:32)
[2021-09-09] MEDS: PRAZOSIN HCL 1 MG CAPSULE PO SCH (20:32)
[2021-09-10 08:20] VITALS: BP 130/77
[2021-09-10] MEDS: BuPROPion HCL 150 MG SR TABLET PO SCH ×2 (08:28→16:15)
[2021-09-10] MEDS: MULTIVITAMINS WITH MINERALS, THERAPEUTIC TABLET PO SCH (08:28)
[2021-09-10] MEDS: METHADONE HCL 10 MG TABLET PO SCH (08:28)
[2021-09-10] MEDS: BusPIRone HCL 15 MG TABLET PO SCH ×2 (08:28→16:15)
[2021-09-10] MEDS: LIDOCAINE TP SCH (08:33)
[2021-09-10] MEDS: QUEtiapine FUMARATE 300 MG TABLET PO SCH (20:12)
[2021-09-10] MEDS: PRAZOSIN HCL 1 MG CAPSULE PO SCH (20:12)
[2021-09-10 21:15] VITALS: BP 136/77
[2021-09-11 08:44] VITALS: BP 123/60
[2021-09-11] MEDS: METHADONE HCL 10 MG TABLET PO SCH (08:51)
[2021-09-11] MEDS: BuPROPion HCL 150 MG SR TABLET PO SCH ×2 (08:51→16:20)
[2021-09-11] MEDS: MULTIVITAMINS WITH MINERALS, THERAPEUTIC TABLET PO SCH (08:51)
[2021-09-11] MEDS: BusPIRone HCL 15 MG TABLET PO SCH ×2 (08:51→16:20)
[2021-09-11] MEDS: LIDOCAINE TP SCH (08:53)
[2021-09-11] MEDS: NICOTINE POLACRILEX 2 MG LOZENGE PO PRN (12:24)
[2021-09-11] MEDS: PRAZOSIN HCL 1 MG CAPSULE PO SCH (20:09)
[2021-09-11] MEDS: HydrOXYzine PAMOATE 50 MG CAPSULE PO PRN (20:09)
[2021-09-11] MEDS: QUEtiapine FUMARATE 300 MG TABLET PO SCH (21:00)
[2021-09-11 21:21] VITALS: BP 127/65
[2021-09-12 08:21] VITALS: BP 125/59
[2021-09-12] MEDS: BusPIRone HCL 15 MG TABLET PO SCH ×2 (08:25→16:06)
[2021-09-12] MEDS: METHADONE HCL 10 MG TABLET PO SCH (08:25)
[2021-09-12] MEDS: BuPROPion HCL 150 MG SR TABLET PO SCH ×2 (08:25→16:06)
[2021-09-12] MEDS: MULTIVITAMINS WITH MINERALS, THERAPEUTIC TABLET PO SCH (08:25)
[2021-09-12] MEDS: LIDOCAINE TP SCH (09:50)
[2021-09-12] MEDS: HydrOXYzine PAMOATE 50 MG CAPSULE PO PRN (12:33)
[2021-09-12] MEDS: NICOTINE POLACRILEX 2 MG LOZENGE PO PRN (12:33)
[2021-09-12 20:23] VITALS: BP 137/80
[2021-09-12] MEDS: QUEtiapine FUMARATE 300 MG TABLET PO SCH (20:25)
[2021-09-12] MEDS: PRAZOSIN HCL 1 MG CAPSULE PO SCH (20:25)
[2021-09-12 22:56] LABS: GLUCOMETER DEV NAME(LOC) POC.BV
[2021-09-13] MEDS: NICOTINE POLACRILEX 2 MG LOZENGE PO PRN (08:34)
[2021-09-13] MEDS: ACETAMINOPHEN 325 MG TABLET PO PRN (08:34)
[2021-09-13] MEDS: METHADONE HCL 10 MG TABLET PO SCH (08:35)
[2021-09-13] MEDS: MULTIVITAMINS WITH MINERALS, THERAPEUTIC TABLET PO SCH (08:35)
[2021-09-13 08:38] VITALS: BP 132/74
[2021-09-13] MEDS: BuPROPion HCL 150 MG SR TABLET PO SCH ×2 (09:32→16:25)
[2021-09-13] MEDS: BusPIRone HCL 15 MG TABLET PO SCH ×2 (09:32→16:25)
[2021-09-13] MEDS: LIDOCAINE TP SCH (09:32)
[2021-09-13] MEDS: QUEtiapine FUMARATE 300 MG TABLET PO SCH (20:34)
[2021-09-13] MEDS: PRAZOSIN HCL 1 MG CAPSULE PO SCH (20:34)
[2021-09-13 20:48] VITALS: BP 128/73
[2021-09-14 08:40] VITALS: BP 131/75
[2021-09-14] MEDS: MULTIVITAMINS WITH MINERALS, THERAPEUTIC TABLET PO SCH (08:56)
[2021-09-14] MEDS: BuPROPion HCL 150 MG SR TABLET PO SCH (08:56)
[2021-09-14] MEDS: BusPIRone HCL 15 MG TABLET PO SCH (08:57)
[2021-09-14] MEDS: METHADONE HCL 10 MG TABLET PO SCH (08:57)
[2021-09-14] MEDS: LIDOCAINE TP SCH (10:05)
[2021-09-14] MEDS ORDERED: BUSP15 PO (10:34)
[2021-09-14] MEDS ORDERED: BUPR-290 PO (10:34)
[2021-09-14] MEDS ORDERED: QUET300T19 PO (10:34)
[2021-09-14] MEDS ORDERED: PRAZ1 PO (10:34)
[2021-09-14] MEDS: NICOTINE POLACRILEX 2 MG LOZENGE PO PRN (12:06)
== END 2021-09-14 13:25 | disposition home or self-care (01) | DRG 750 ==
LOC: B2S 20:02
PROVIDERS: ADMIT Psychiatry & Neurology Psychiatry; ATTEND Psychiatry & Neurology Psychiatry
DX: F25.1 Schizoaffective disorder, depressive type (principal); R45.851 Suicidal ideations; F11.20 Opioid dependence, uncomplicated; F43.10 Post-traumatic stress disorder, unspecified; G47.00 Insomnia, unspecified; I10 Essential (primary) hypertension; K25.9 Gastric ulcer, unspecified as acute or chronic, without hemorrhage or perforation; Z20.822 Contact with and (suspected) exposure to COVID-19; Z59.00 Homelessness unspecified; Z79.899 Other long term (current) drug therapy; Z88.8 Allergy status to other drugs, medicaments and biological substances
CPT/HCPCS: 80307; 81003; 87081; 90732; Q9967

== ENCOUNTER 2021-12-13 16:02 | Inpatient (IN) | payer MEDICAID ==
[~2021-12-13] VITALS: Ht 175.3 cm; Wt 93.9 kg
[~2021-12-13 16:02] MED LIST changes: -BUPR-344 PO; +BUPR-72 PO; +BUSP15 PO; +PRAZ1 PO; -QUET200T30 PO; +QUET300T19 PO; -QUET50TA PO
[2021-12-14 00:51] VITALS: BP 140/74
[2021-12-14 08:09] VITALS: BP 118/66
[2021-12-14] MEDS: METHADONE HCL 10 MG TABLET PO SCH (09:22)
[2021-12-14] MEDS: BACITRACIN 28 GM OINTMENT TP SCH ×2 (09:23→17:11)
[2021-12-14] MEDS: CEPHALEXIN MONOHYDRATE 500 MG CAPSULE PO SCH ×3 (09:23→16:25)
[2021-12-14] MEDS: BuPROPion HCL 150 MG SR TABLET PO SCH ×2 (10:12→16:25)
[2021-12-14] MEDS: GABAPENTIN 300 MG CAPSULE PO SCH ×3 (10:12→21:27)
[2021-12-14] MEDS: BusPIRone HCL 15 MG TABLET PO SCH ×2 (10:13→16:25)
[2021-12-14] MEDS ORDERED: DOCUSATE SODIUM 100 MG CAPSULE PO PRN (10:45)
[2021-12-14] MEDS ORDERED: ONDANSETRON HCL 4 MG TABLET PO PRN (10:45)
[2021-12-14] MEDS ORDERED: ALBUTEROL SULFATE HFA 90 MCG/PUFF 8 GM INHALER IH PRN (10:45)
[2021-12-14] MEDS ORDERED: NICOTINE 14 MG/24 HOUR PATCH TD PRN (10:45)
[2021-12-14] MEDS ORDERED: CloNIDine HCL 0.1 MG TABLET PO PRN (10:45)
[2021-12-14] MEDS ORDERED: LOPERAMIDE HCL 2 MG CAPSULE PO PRN (10:45)
[2021-12-14] MEDS ORDERED: PETROLATUM,WHITE 28 GM JELLY TP PRN (10:45)
[2021-12-14] MEDS ORDERED: GuaiFENesin/D-METHORPHAN [SUGAR-FREE] 200-20MG/10 ML SYRUP UDCUP PO PRN (10:45)
[2021-12-14] MEDS: LORazepam 2 MG TABLET PO PRN ×2 (12:17→16:25)
[2021-12-14] MEDS: LURASIDONE HCL 80 MG TABLET PO SCH (16:28)
[2021-12-14] MEDS: QUEtiapine FUMARATE 100 MG TABLET PO PRN ×2 (16:50→21:27)
[2021-12-14 20:22] VITALS: BP 114/64
[2021-12-14] MEDS: ZOLPIDEM TARTRATE 10 MG TABLET PO PRN (21:28)
[2021-12-15 07:44] LABS: BASOPHILS % (AUTO) 1.2 % (0.0-2.0); HEMATOCRIT 40.4 % (41-53); HEMOGLOBIN 13.2 g/dL (13.5-17.5); LYMPHOCYTES # (AUTO) 2.8 K/uL (1.0-4.8); LYMPHOCYTES % (AUTO) 41.9 % (22.0-44.0); MEAN CORPUSCULAR HEMOGLOBIN 29.4 pg (26.0-34.0); MEAN CORPUSCULAR HGB CONC 32.7 G/dL (31.0-37.0); MEAN CORPUSCULAR VOLUME 90 fL (80-100); MONOCYTES # (AUTO) 0.7 K/uL (0.1-1.0); MONOCYTES % (AUTO) 11.2 % (2.0-9.0); NEUTROPHILS # (AUTO) 2.8 K/uL (1.8-7.7); NEUTROPHILS % (AUTO) 41.7 % (40.0-70.0); PLATELET COUNT (AUTO) 305 K/uL (150-450); RED CELL DISTRIBUTION WIDTH 13.6 % (11.5-14.5)
[2021-12-15 07:45] LABS: AMPHET/METH SCREEN,URINE NEGATIVE (NEGATIVE); BARBITURATE SCREEN, URINE NEGATIVE (NEGATIVE); BENZODIAZEPINES SCREEN,URINE NEGATIVE (NEGATIVE); CANNABINOID SCREEN,URINE NEGATIVE (NEGATIVE); COCAINE SCREEN,URINE NEGATIVE (NEGATIVE); METHADONE SCREEN, URINE NEGATIVE (NEGATIVE); OPIATE SCREEN,URINE NEGATIVE (NEGATIVE)
[2021-12-15 07:46] LABS: PHENCYCLIDINE SCREEN,URINE NEGATIVE (NEGATIVE)
[2021-12-15 07:59] LABS: ALANINE AMINOTRANSFERASE 52 U/L (12-78); ALBUMIN 3.2 g/dL (3.4-5.0); ALKALINE PHOSPHATASE 51 U/L (46-116); ANION GAP 4 mmol/L (8-16); ASPARTATE AMINOTRANSFERASE 40 U/L (15-37); BILIRUBIN,TOTAL 0.2 mg/dL (0.1-1.0); CALCIUM, TOTAL 9.5 mg/dL (8.8-10.5); CARBON DIOXIDE 30 mmol/L (22-29); CHLORIDE 103 mmol/L (98-107); CHOL/HDL RATIO 2.7 (4.2-7.3); CHOLESTEROL 172 mg/dL (131-200); CREATININE 1.09 mg/dL (0.60-1.30); FREE T4 (FREE THYROXINE) 0.76 ng/dL (0.76-1.46); GLOMERULAR FILTR. RATE CALC > 60 mL/min (>60); GLUCOSE,RANDOM 87 mg/dL (70-110); HDL CHOLESTEROL 63 mg/dL (40-60); LDL CHOL (CALC.) 101 mg/dL (0-130); POTASSIUM 4.5 mmol/L (3.5-5.1); SODIUM SERUM 137 mmol/L (136-145); THYROID STIMULATING HORMONE 0.78 uIU/mL (0.36-3.74); TOTAL PROTEIN, SERUM 6.9 g/dL (6.4-8.2); TRIGLYCERIDES 42 mg/dL (15-150); UREA NITROGEN, BLOOD 13 mg/dL (7-18)
[2021-12-15 08:00] LABS: HEMOGLOBIN A1C 5.1 % (3.8-5.6)
[2021-12-15 08:19] VITALS: BP 128/64
[2021-12-15] MEDS: METHADONE HCL 10 MG TABLET PO SCH (08:42)
[2021-12-15] MEDS: LORazepam 2 MG TABLET PO PRN ×3 (08:42→17:15)
[2021-12-15] MEDS: CEPHALEXIN MONOHYDRATE 500 MG CAPSULE PO SCH ×3 (08:42→16:26)
[2021-12-15] MEDS: BusPIRone HCL 15 MG TABLET PO SCH ×2 (08:42→16:27)
[2021-12-15] MEDS: BuPROPion HCL 150 MG SR TABLET PO SCH ×2 (08:43→16:26)
[2021-12-15] MEDS: GABAPENTIN 300 MG CAPSULE PO SCH ×3 (08:43→20:26)
[2021-12-15] MEDS: BACITRACIN 28 GM OINTMENT TP SCH ×2 (08:48→16:27)
[2021-12-15] MEDS: IBUPROFEN 400 MG TABLET PO PRN (10:30)
[2021-12-15] MEDS: LURASIDONE HCL 80 MG TABLET PO SCH (16:26)
[2021-12-15] MEDS: QUEtiapine FUMARATE 100 MG TABLET PO PRN (17:15)
[2021-12-15 20:16] VITALS: BP 110/65
[2021-12-15] MEDS: ZOLPIDEM TARTRATE 10 MG TABLET PO PRN (20:26)
[2021-12-16 08:33] VITALS: BP 106/56
[2021-12-16] MEDS: CEPHALEXIN MONOHYDRATE 500 MG CAPSULE PO SCH ×3 (09:09→16:19)
[2021-12-16] MEDS: BusPIRone HCL 15 MG TABLET PO SCH ×2 (09:09→16:20)
[2021-12-16] MEDS: METHADONE HCL 10 MG TABLET PO SCH (09:09)
[2021-12-16] MEDS: BuPROPion HCL 150 MG SR TABLET PO SCH ×2 (09:09→16:19)
[2021-12-16] MEDS: GABAPENTIN 300 MG CAPSULE PO SCH ×3 (09:10→20:00)
[2021-12-16] MEDS: BACITRACIN 28 GM OINTMENT TP SCH ×2 (09:12→16:20)
[2021-12-16 10:00] VITALS: BP 135/73
[2021-12-16] MEDS: LORazepam 2 MG TABLET PO PRN ×2 (10:27→16:20)
[2021-12-16] MEDS: NICOTINE POLACRILEX 2 MG LOZENGE PO PRN ×2 (13:34→18:29)
[2021-12-16] MEDS: LURASIDONE HCL 80 MG TABLET PO SCH (16:19)
[2021-12-16] MEDS: ZOLPIDEM TARTRATE 10 MG TABLET PO PRN (20:00)
[2021-12-16 20:19] VITALS: BP 134/66
[2021-12-17] MEDS: QUEtiapine FUMARATE 100 MG TABLET PO PRN ×2 (00:16→17:00)
[2021-12-17 08:29] VITALS: BP 109/60
[2021-12-17] MEDS: METHADONE HCL 10 MG TABLET PO SCH (08:44)
[2021-12-17] MEDS: CEPHALEXIN MONOHYDRATE 500 MG CAPSULE PO SCH ×3 (08:44→17:00)
[2021-12-17] MEDS: BusPIRone HCL 15 MG TABLET PO SCH ×2 (08:44→17:00)
[2021-12-17] MEDS: BuPROPion HCL 150 MG SR TABLET PO SCH ×2 (08:44→17:00)
[2021-12-17] MEDS: GABAPENTIN 300 MG CAPSULE PO SCH ×3 (08:44→20:21)
[2021-12-17] MEDS: BACITRACIN 28 GM OINTMENT TP SCH ×2 (08:44→17:01)
[2021-12-17] MEDS: NICOTINE POLACRILEX 2 MG LOZENGE PO PRN ×3 (08:50→20:21)
[2021-12-17] MEDS: IBUPROFEN 400 MG TABLET PO PRN (11:35)
[2021-12-17] MEDS: LORazepam 2 MG TABLET PO PRN ×2 (11:36→17:00)
[2021-12-17] MEDS: LURASIDONE HCL 80 MG TABLET PO SCH (17:00)
[2021-12-17] MEDS: ZOLPIDEM TARTRATE 10 MG TABLET PO PRN (20:21)
[2021-12-17 20:34] VITALS: BP 118/70
[2021-12-18] MEDS: BACITRACIN 28 GM OINTMENT TP SCH ×2 (08:41→16:37)
[2021-12-18] MEDS: GABAPENTIN 300 MG CAPSULE PO SCH ×3 (08:42→20:04)
[2021-12-18] MEDS: BusPIRone HCL 15 MG TABLET PO SCH ×2 (08:42→16:36)
[2021-12-18] MEDS: CEPHALEXIN MONOHYDRATE 500 MG CAPSULE PO SCH ×3 (08:42→16:37)
[2021-12-18] MEDS: BuPROPion HCL 150 MG SR TABLET PO SCH ×2 (08:42→16:37)
[2021-12-18] MEDS: METHADONE HCL 10 MG TABLET PO SCH (08:42)
[2021-12-18] MEDS: LORazepam 2 MG TABLET PO PRN ×2 (08:42→16:48)
[2021-12-18 09:07] VITALS: BP 134/73
[2021-12-18] MEDS: NICOTINE POLACRILEX 2 MG LOZENGE PO PRN ×2 (09:55→16:37)
[2021-12-18] MEDS: LURASIDONE HCL 80 MG TABLET PO SCH (16:37)
[2021-12-18] MEDS: ACETAMINOPHEN 325 MG TABLET PO PRN (16:47)
[2021-12-18] MEDS: QUEtiapine FUMARATE 100 MG TABLET PO PRN (20:04)
[2021-12-18 20:43] VITALS: BP 120/74
[2021-12-18] MEDS: ZOLPIDEM TARTRATE 10 MG TABLET PO PRN (22:31)
[2021-12-19] MEDS: CEPHALEXIN MONOHYDRATE 500 MG CAPSULE PO SCH ×3 (08:38→16:30)
[2021-12-19] MEDS: METHADONE HCL 10 MG TABLET PO SCH (08:38)
[2021-12-19] MEDS: GABAPENTIN 300 MG CAPSULE PO SCH ×3 (08:38→20:42)
[2021-12-19] MEDS: MULTIVITAMINS WITH MINERALS, THERAPEUTIC TABLET PO SCH (08:38)
[2021-12-19] MEDS: BuPROPion HCL 150 MG SR TABLET PO SCH ×2 (08:38→16:29)
[2021-12-19] MEDS: BACITRACIN 28 GM OINTMENT TP SCH ×2 (08:38→16:30)
[2021-12-19] MEDS: BusPIRone HCL 15 MG TABLET PO SCH ×2 (08:38→16:29)
[2021-12-19 09:06] LABS: GLUCOMETER DEV NAME(LOC) POC.BV
[2021-12-19 09:09] VITALS: BP 112/61
[2021-12-19] MEDS: NICOTINE POLACRILEX 2 MG LOZENGE PO PRN ×2 (11:19→16:32)
[2021-12-19] MEDS: LORazepam 2 MG TABLET PO PRN (11:19)
[2021-12-19] MEDS: LURASIDONE HCL 80 MG TABLET PO SCH (16:30)
[2021-12-19] MEDS: QUEtiapine FUMARATE 100 MG TABLET PO PRN (16:30)
[2021-12-19 20:20] VITALS: BP 118/68
[2021-12-19] MEDS: ZOLPIDEM TARTRATE 10 MG TABLET PO PRN (20:42)
[2021-12-20] MEDS: MULTIVITAMINS WITH MINERALS, THERAPEUTIC TABLET PO SCH (08:20)
[2021-12-20] MEDS: METHADONE HCL 10 MG TABLET PO SCH (08:20)
[2021-12-20] MEDS: GABAPENTIN 300 MG CAPSULE PO SCH ×3 (08:20→20:35)
[2021-12-20] MEDS: BuPROPion HCL 150 MG SR TABLET PO SCH ×2 (08:20→16:11)
[2021-12-20] MEDS: CEPHALEXIN MONOHYDRATE 500 MG CAPSULE PO SCH ×3 (08:20→16:11)
[2021-12-20] MEDS: BusPIRone HCL 15 MG TABLET PO SCH ×2 (08:20→16:11)
[2021-12-20 08:45] VITALS: BP 149/78
[2021-12-20] MEDS: BACITRACIN 28 GM OINTMENT TP SCH ×2 (09:51→16:11)
[2021-12-20] MEDS: NICOTINE POLACRILEX 2 MG LOZENGE PO PRN ×2 (12:53→17:26)
[2021-12-20] MEDS: LORazepam 2 MG TABLET PO PRN ×2 (12:54→17:26)
[2021-12-20] MEDS: LURASIDONE HCL 80 MG TABLET PO SCH (16:11)
[2021-12-20] MEDS: QUEtiapine FUMARATE 100 MG TABLET PO PRN (18:15)
[2021-12-20] MEDS: ZOLPIDEM TARTRATE 10 MG TABLET PO PRN (20:35)
[2021-12-20 20:39] VITALS: BP 128/72
[2021-12-21 04:46] VITALS: BP 129/73
[2021-12-21] MEDS: IBUPROFEN 400 MG TABLET PO PRN (04:56)
[2021-12-21 08:00] VITALS: BP 130/71
[2021-12-21] MEDS: BusPIRone HCL 15 MG TABLET PO SCH ×2 (09:08→16:23)
[2021-12-21] MEDS: CEPHALEXIN MONOHYDRATE 500 MG CAPSULE PO SCH (09:08)
[2021-12-21] MEDS: GABAPENTIN 300 MG CAPSULE PO SCH ×3 (09:08→20:42)
[2021-12-21] MEDS: METHADONE HCL 10 MG TABLET PO SCH (09:08)
[2021-12-21] MEDS: MULTIVITAMINS WITH MINERALS, THERAPEUTIC TABLET PO SCH (09:08)
[2021-12-21] MEDS: BuPROPion HCL 150 MG SR TABLET PO SCH ×2 (09:08→16:23)
[2021-12-21] MEDS: BACITRACIN 28 GM OINTMENT TP SCH ×2 (09:13→16:23)
[2021-12-21] MEDS: NICOTINE POLACRILEX 2 MG LOZENGE PO PRN ×2 (09:14→13:33)
[2021-12-21] MEDS: LORazepam 2 MG TABLET PO PRN ×2 (09:55→16:23)
[2021-12-21] MEDS: LURASIDONE HCL 80 MG TABLET PO SCH (16:23)
[2021-12-21] MEDS: QUEtiapine FUMARATE 100 MG TABLET PO PRN (17:12)
[2021-12-21 20:23] VITALS: BP 136/66
[2021-12-21] MEDS: ZOLPIDEM TARTRATE 10 MG TABLET PO PRN (20:42)
[2021-12-22] MEDS: BusPIRone HCL 15 MG TABLET PO SCH ×2 (08:32→16:21)
[2021-12-22] MEDS: MULTIVITAMINS WITH MINERALS, THERAPEUTIC TABLET PO SCH (08:32)
[2021-12-22] MEDS: BuPROPion HCL 150 MG SR TABLET PO SCH ×2 (08:32→16:21)
[2021-12-22] MEDS: GABAPENTIN 300 MG CAPSULE PO SCH ×3 (08:32→20:05)
[2021-12-22] MEDS: METHADONE HCL 10 MG TABLET PO SCH (08:33)
[2021-12-22 08:39] VITALS: BP 120/64
[2021-12-22] MEDS: BACITRACIN 28 GM OINTMENT TP SCH ×2 (09:12→16:22)
[2021-12-22] MEDS: NICOTINE POLACRILEX 2 MG LOZENGE PO PRN ×2 (09:35→16:28)
[2021-12-22] MEDS: LORazepam 2 MG TABLET PO PRN ×2 (12:52→17:27)
[2021-12-22] MEDS: LURASIDONE HCL 80 MG TABLET PO SCH (16:21)
[2021-12-22] MEDS: IBUPROFEN 400 MG TABLET PO PRN (16:28)
[2021-12-22] MEDS: QUEtiapine FUMARATE 100 MG TABLET PO PRN (20:10)
[2021-12-22 20:33] VITALS: BP 142/77
[2021-12-23 08:24] VITALS: BP 115/69
[2021-12-23] MEDS: METHADONE HCL 10 MG TABLET PO SCH (08:53)
[2021-12-23] MEDS: BACITRACIN 28 GM OINTMENT TP SCH ×2 (08:53→17:06)
[2021-12-23] MEDS: MULTIVITAMINS WITH MINERALS, THERAPEUTIC TABLET PO SCH (08:53)
[2021-12-23] MEDS: BusPIRone HCL 15 MG TABLET PO SCH ×2 (08:54→16:48)
[2021-12-23] MEDS: GABAPENTIN 300 MG CAPSULE PO SCH ×3 (08:54→20:39)
[2021-12-23] MEDS: NICOTINE POLACRILEX 2 MG LOZENGE PO PRN ×2 (08:54→16:48)
[2021-12-23] MEDS: BuPROPion HCL 150 MG SR TABLET PO SCH ×2 (08:54→16:48)
[2021-12-23] MEDS: LORazepam 2 MG TABLET PO PRN ×2 (12:08→16:48)
[2021-12-23] MEDS: IBUPROFEN 400 MG TABLET PO PRN (12:15)
[2021-12-23] MEDS: MAGNESIUM HYDROXIDE SUSPENSION 30 ML UDCUP PO PRN (12:15)
[2021-12-23] MEDS: LURASIDONE HCL 80 MG TABLET PO SCH (16:48)
[2021-12-23] MEDS: ZOLPIDEM TARTRATE 10 MG TABLET PO PRN (20:39)
[2021-12-23 20:52] VITALS: BP 133/75
[2021-12-24] MEDS: QUEtiapine FUMARATE 100 MG TABLET PO PRN ×2 (01:48→20:24)
[2021-12-24] MEDS: BACITRACIN 28 GM OINTMENT TP SCH ×2 (09:09→16:31)
[2021-12-24] MEDS: GABAPENTIN 300 MG CAPSULE PO SCH ×3 (09:09→20:20)
[2021-12-24] MEDS: BusPIRone HCL 15 MG TABLET PO SCH ×2 (09:09→16:31)
[2021-12-24] MEDS: METHADONE HCL 10 MG TABLET PO SCH (09:09)
[2021-12-24] MEDS: MULTIVITAMINS WITH MINERALS, THERAPEUTIC TABLET PO SCH (09:09)
[2021-12-24] MEDS: BuPROPion HCL 150 MG SR TABLET PO SCH ×2 (09:09→16:30)
[2021-12-24 09:17] VITALS: BP 133/78
[2021-12-24] MEDS: NICOTINE POLACRILEX 2 MG LOZENGE PO PRN ×2 (09:37→16:38)
[2021-12-24] MEDS: LORazepam 2 MG TABLET PO PRN (11:01)
[2021-12-24] MEDS: MAGNESIUM HYDROXIDE SUSPENSION 30 ML UDCUP PO PRN (11:01)
[2021-12-24] MEDS: LURASIDONE HCL 80 MG TABLET PO SCH (16:30)
[2021-12-24 20:47] VITALS: BP 135/77
[2021-12-25] MEDS: IBUPROFEN 400 MG TABLET PO PRN (06:02)
[2021-12-25] MEDS: BuPROPion HCL 150 MG SR TABLET PO SCH ×2 (08:28→16:20)
[2021-12-25] MEDS: BusPIRone HCL 15 MG TABLET PO SCH ×2 (08:28→16:20)
[2021-12-25] MEDS: MULTIVITAMINS WITH MINERALS, THERAPEUTIC TABLET PO SCH (08:29)
[2021-12-25] MEDS: GABAPENTIN 300 MG CAPSULE PO SCH ×3 (08:29→20:20)
[2021-12-25] MEDS: METHADONE HCL 10 MG TABLET PO SCH (08:29)
[2021-12-25] MEDS: BACITRACIN 28 GM OINTMENT TP SCH ×2 (08:31→16:22)
[2021-12-25 08:44] VITALS: BP 116/66
[2021-12-25] MEDS: NICOTINE POLACRILEX 2 MG LOZENGE PO PRN ×2 (12:08→17:45)
[2021-12-25] MEDS: LORazepam 2 MG TABLET PO PRN (12:08)
[2021-12-25] MEDS: ACETAMINOPHEN 325 MG TABLET PO PRN (12:10)
[2021-12-25] MEDS: LURASIDONE HCL 80 MG TABLET PO SCH (16:20)
[2021-12-25] MEDS ORDERED: BENZTROPINE MESYLATE 1 MG TABLET PO ONE (20:15)
[2021-12-25] MEDS: QUEtiapine FUMARATE 100 MG TABLET PO PRN (20:20)
[2021-12-25 20:29] VITALS: BP 132/66
[2021-12-26 08:31] VITALS: BP 120/86
[2021-12-26] MEDS: BuPROPion HCL 150 MG SR TABLET PO SCH ×2 (08:49→17:12)
[2021-12-26] MEDS: BusPIRone HCL 15 MG TABLET PO SCH ×2 (08:49→17:19)
[2021-12-26] MEDS: MULTIVITAMINS WITH MINERALS, THERAPEUTIC TABLET PO SCH (08:49)
[2021-12-26] MEDS: GABAPENTIN 300 MG CAPSULE PO SCH ×3 (08:49→21:12)
[2021-12-26] MEDS: BACITRACIN 28 GM OINTMENT TP SCH ×2 (08:50→17:19)
[2021-12-26] MEDS: METHADONE HCL 10 MG TABLET PO SCH (08:50)
[2021-12-26] MEDS: NICOTINE POLACRILEX 2 MG LOZENGE PO PRN ×2 (10:28→17:32)
[2021-12-26] MEDS: MAG HYDROX/AL HYDROX/SIMETH ES 30 ML SUSPENSION UDCUP PO PRN (10:33)
[2021-12-26 10:51] LABS: GLUCOMETER DEV NAME(LOC) POC.BV
[2021-12-26] MEDS: LORazepam 2 MG TABLET PO PRN (12:59)
[2021-12-26] MEDS: BENZTROPINE MESYLATE 1 MG TABLET PO SCH (17:12)
[2021-12-26] MEDS: LURASIDONE HCL 80 MG TABLET PO SCH (17:19)
[2021-12-26 20:17] VITALS: BP 134/74
[2021-12-27] MEDS: ZOLPIDEM TARTRATE 10 MG TABLET PO PRN (02:52)
[2021-12-27 08:28] VITALS: BP 109/63
[2021-12-27] MEDS: BACITRACIN 28 GM OINTMENT TP SCH ×2 (08:57→16:59)
[2021-12-27] MEDS: NICOTINE POLACRILEX 2 MG LOZENGE PO PRN ×2 (09:02→17:53)
[2021-12-27] MEDS: METHADONE HCL 10 MG TABLET PO SCH (09:02)
[2021-12-27] MEDS: GABAPENTIN 300 MG CAPSULE PO SCH ×3 (09:02→20:32)
[2021-12-27] MEDS: IBUPROFEN 400 MG TABLET PO PRN (09:02)
[2021-12-27] MEDS: MULTIVITAMINS WITH MINERALS, THERAPEUTIC TABLET PO SCH (09:02)
[2021-12-27 09:05] VITALS: BP 109/63
[2021-12-27] MEDS: BusPIRone HCL 15 MG TABLET PO SCH ×2 (10:31→16:59)
[2021-12-27] MEDS: BuPROPion HCL 150 MG SR TABLET PO SCH ×2 (10:31→16:58)
[2021-12-27] MEDS: LORazepam 2 MG TABLET PO PRN (12:00)
[2021-12-27] MEDS: MAG HYDROX/AL HYDROX/SIMETH ES 30 ML SUSPENSION UDCUP PO PRN (14:55)
[2021-12-27] MEDS: BENZTROPINE MESYLATE 1 MG TABLET PO SCH (16:58)
[2021-12-27] MEDS: LURASIDONE HCL 80 MG TABLET PO SCH (16:58)
[2021-12-27 21:01] VITALS: BP 164/81
[2021-12-28] MEDS: ZOLPIDEM TARTRATE 10 MG TABLET PO PRN (00:07)
[2021-12-28 00:12] VITALS: BP 126/76
[2021-12-28 08:55] VITALS: BP 142/65
[2021-12-28] MEDS: BuPROPion HCL 150 MG SR TABLET PO SCH ×2 (08:57→16:16)
[2021-12-28] MEDS: BACITRACIN 28 GM OINTMENT TP SCH ×2 (08:58→16:06)
[2021-12-28] MEDS: METHADONE HCL 10 MG TABLET PO SCH (08:58)
[2021-12-28] MEDS: BusPIRone HCL 15 MG TABLET PO SCH ×2 (08:58→16:06)
[2021-12-28] MEDS: GABAPENTIN 300 MG CAPSULE PO SCH ×3 (08:58→20:16)
[2021-12-28] MEDS: MULTIVITAMINS WITH MINERALS, THERAPEUTIC TABLET PO SCH (08:58)
[2021-12-28] MEDS: NICOTINE POLACRILEX 2 MG LOZENGE PO PRN (10:06)
[2021-12-28] MEDS: LORazepam 2 MG TABLET PO PRN (11:22)
[2021-12-28] MEDS: BENZTROPINE MESYLATE 1 MG TABLET PO SCH (16:05)
[2021-12-28] MEDS: LURASIDONE HCL 80 MG TABLET PO SCH (16:06)
[2021-12-28 20:22] VITALS: BP 119/74
[2021-12-29 00:20] VITALS: BP 121/62
[2021-12-29] MEDS: ZOLPIDEM TARTRATE 10 MG TABLET PO PRN (00:22)
[2021-12-29 08:42] VITALS: BP 109/59
[2021-12-29] MEDS: METHADONE HCL 10 MG TABLET PO SCH (08:47)
[2021-12-29] MEDS: BuPROPion HCL 150 MG SR TABLET PO SCH ×2 (08:47→16:44)
[2021-12-29] MEDS: GABAPENTIN 300 MG CAPSULE PO SCH ×3 (08:48→20:15)
[2021-12-29] MEDS: MULTIVITAMINS WITH MINERALS, THERAPEUTIC TABLET PO SCH (08:48)
[2021-12-29] MEDS: BusPIRone HCL 15 MG TABLET PO SCH ×2 (08:48→16:44)
[2021-12-29] MEDS: BACITRACIN 28 GM OINTMENT TP SCH ×2 (08:48→16:45)
[2021-12-29] MEDS: NICOTINE POLACRILEX 2 MG LOZENGE PO PRN (12:42)
[2021-12-29] MEDS: LORazepam 2 MG TABLET PO PRN (12:43)
[2021-12-29] MEDS: LURASIDONE HCL 80 MG TABLET PO SCH (16:44)
[2021-12-29] MEDS: BENZTROPINE MESYLATE 1 MG TABLET PO SCH (16:45)
[2021-12-29 20:31] VITALS: BP 131/76
[2021-12-30 00:32] VITALS: BP 113/73
[2021-12-30] MEDS: ZOLPIDEM TARTRATE 10 MG TABLET PO PRN (00:36)
[2021-12-30 08:05] VITALS: BP 128/64
[2021-12-30] MEDS: BusPIRone HCL 15 MG TABLET PO SCH ×2 (09:39→16:49)
[2021-12-30] MEDS: MULTIVITAMINS WITH MINERALS, THERAPEUTIC TABLET PO SCH (09:39)
[2021-12-30] MEDS: GABAPENTIN 300 MG CAPSULE PO SCH ×3 (09:39→20:23)
[2021-12-30] MEDS: METHADONE HCL 10 MG TABLET PO SCH (09:39)
[2021-12-30] MEDS: BuPROPion HCL 150 MG SR TABLET PO SCH ×2 (09:39→16:49)
[2021-12-30] MEDS: BACITRACIN 28 GM OINTMENT TP SCH ×2 (09:40→16:49)
[2021-12-30] MEDS: NICOTINE POLACRILEX 2 MG LOZENGE PO PRN ×2 (10:02→17:52)
[2021-12-30] MEDS: LORazepam 2 MG TABLET PO PRN ×2 (13:43→17:52)
[2021-12-30] MEDS: BENZTROPINE MESYLATE 1 MG TABLET PO SCH (16:49)
[2021-12-30] MEDS: LURASIDONE HCL 80 MG TABLET PO SCH (16:49)
[2021-12-30 20:08] VITALS: BP 128/81
[2021-12-31 02:20] VITALS: BP 106/68
[2021-12-31] MEDS: ZOLPIDEM TARTRATE 10 MG TABLET PO PRN (02:26)
[2021-12-31 08:13] VITALS: BP 112/69
[2021-12-31] MEDS: BuPROPion HCL 150 MG SR TABLET PO SCH ×2 (09:20→16:58)
[2021-12-31] MEDS: MULTIVITAMINS WITH MINERALS, THERAPEUTIC TABLET PO SCH (09:20)
[2021-12-31] MEDS: GABAPENTIN 300 MG CAPSULE PO SCH ×3 (09:20→20:28)
[2021-12-31] MEDS: BACITRACIN 28 GM OINTMENT TP SCH ×2 (09:21→16:58)
[2021-12-31] MEDS: METHADONE HCL 10 MG TABLET PO SCH (09:21)
[2021-12-31] MEDS: BusPIRone HCL 15 MG TABLET PO SCH ×2 (09:21→16:57)
[2021-12-31] MEDS: IBUPROFEN 400 MG TABLET PO PRN (13:11)
[2021-12-31] MEDS: LORazepam 2 MG TABLET PO PRN (16:10)
[2021-12-31] MEDS: MAG HYDROX/AL HYDROX/SIMETH ES 30 ML SUSPENSION UDCUP PO PRN (16:42)
[2021-12-31] MEDS: LURASIDONE HCL 80 MG TABLET PO SCH (16:57)
[2021-12-31] MEDS: BENZTROPINE MESYLATE 1 MG TABLET PO SCH (16:58)
[2021-12-31 20:59] VITALS: BP 123/72
[2021-12-31] MEDS: QUEtiapine FUMARATE 100 MG TABLET PO PRN (23:53)
[2022-01-01 08:11] VITALS: BP 119/70
[2022-01-01] MEDS: BusPIRone HCL 15 MG TABLET PO SCH ×2 (08:14→16:09)
[2022-01-01] MEDS: GABAPENTIN 300 MG CAPSULE PO SCH ×3 (08:14→20:09)
[2022-01-01] MEDS: BACITRACIN 28 GM OINTMENT TP SCH ×2 (08:15→16:15)
[2022-01-01] MEDS: METHADONE HCL 10 MG TABLET PO SCH (08:15)
[2022-01-01] MEDS: MULTIVITAMINS WITH MINERALS, THERAPEUTIC TABLET PO SCH (08:15)
[2022-01-01] MEDS: BuPROPion HCL 150 MG SR TABLET PO SCH ×2 (08:15→16:09)
[2022-01-01] MEDS: IBUPROFEN 400 MG TABLET PO PRN (10:49)
[2022-01-01] MEDS: LORazepam 2 MG TABLET PO PRN ×2 (10:50→17:24)
[2022-01-01] MEDS: NICOTINE POLACRILEX 2 MG LOZENGE PO PRN ×2 (10:50→17:24)
[2022-01-01] MEDS: LURASIDONE HCL 80 MG TABLET PO SCH (16:09)
[2022-01-01] MEDS: BENZTROPINE MESYLATE 1 MG TABLET PO SCH (16:09)
[2022-01-01] MEDS: MAG HYDROX/AL HYDROX/SIMETH ES 30 ML SUSPENSION UDCUP PO PRN (16:15)
[2022-01-01] MEDS: ACETAMINOPHEN 325 MG TABLET PO PRN (17:25)
[2022-01-01 21:52] VITALS: BP 117/69
[2022-01-02 06:51] LABS: GLUCOMETER DEV NAME(LOC) POC.BV
[2022-01-02 08:05] VITALS: BP 116/64
[2022-01-02] MEDS: BusPIRone HCL 15 MG TABLET PO SCH ×2 (08:55→17:06)
[2022-01-02] MEDS: MULTIVITAMINS WITH MINERALS, THERAPEUTIC TABLET PO SCH (08:55)
[2022-01-02] MEDS: BuPROPion HCL 150 MG SR TABLET PO SCH ×2 (08:55→17:06)
[2022-01-02] MEDS: METHADONE HCL 10 MG TABLET PO SCH (08:56)
[2022-01-02] MEDS: GABAPENTIN 300 MG CAPSULE PO SCH ×3 (08:56→20:47)
[2022-01-02] MEDS: BACITRACIN 28 GM OINTMENT TP SCH ×2 (08:57→17:06)
[2022-01-02] MEDS: NICOTINE POLACRILEX 2 MG LOZENGE PO PRN (15:07)
[2022-01-02] MEDS: IBUPROFEN 400 MG TABLET PO PRN (15:10)
[2022-01-02 15:15] VITALS: BP 129/81
[2022-01-02] MEDS: LORazepam 2 MG TABLET PO PRN (15:29)
[2022-01-02] MEDS: BENZTROPINE MESYLATE 1 MG TABLET PO SCH (17:06)
[2022-01-02] MEDS: LURASIDONE HCL 80 MG TABLET PO SCH (17:06)
[2022-01-02 20:13] VITALS: BP 122/76
[2022-01-03 08:10] VITALS: BP 122/53
[2022-01-03 10:22] VITALS: BP 116/76
[2022-01-03] MEDS: MULTIVITAMINS WITH MINERALS, THERAPEUTIC TABLET PO SCH (10:22)
[2022-01-03] MEDS: GABAPENTIN 300 MG CAPSULE PO SCH ×3 (10:22→20:06)
[2022-01-03] MEDS: BusPIRone HCL 15 MG TABLET PO SCH ×2 (10:22→16:45)
[2022-01-03] MEDS: BuPROPion HCL 150 MG SR TABLET PO SCH ×2 (10:22→16:45)
[2022-01-03] MEDS: METHADONE HCL 10 MG TABLET PO SCH (10:23)
[2022-01-03] MEDS: BACITRACIN 28 GM OINTMENT TP SCH ×2 (10:24→16:45)
[2022-01-03] MEDS: NICOTINE POLACRILEX 2 MG LOZENGE PO PRN (13:11)
[2022-01-03] MEDS: LORazepam 2 MG TABLET PO PRN (13:11)
[2022-01-03] MEDS: BENZTROPINE MESYLATE 1 MG TABLET PO SCH (16:45)
[2022-01-03] MEDS: LURASIDONE HCL 80 MG TABLET PO SCH (16:45)
[2022-01-03 20:07] VITALS: BP 121/70
[2022-01-04 08:35] VITALS: BP 130/69
[2022-01-04] MEDS: BuPROPion HCL 150 MG SR TABLET PO SCH ×2 (09:00→17:09)
[2022-01-04] MEDS: BusPIRone HCL 15 MG TABLET PO SCH ×2 (09:00→17:09)
[2022-01-04] MEDS: MULTIVITAMINS WITH MINERALS, THERAPEUTIC TABLET PO SCH (09:00)
[2022-01-04] MEDS: GABAPENTIN 300 MG CAPSULE PO SCH ×3 (09:00→20:27)
[2022-01-04] MEDS: METHADONE HCL 10 MG TABLET PO SCH (09:01)
[2022-01-04] MEDS: BACITRACIN 28 GM OINTMENT TP SCH ×2 (09:01→17:12)
[2022-01-04] MEDS: LORazepam 2 MG TABLET PO PRN (12:50)
[2022-01-04] MEDS: NICOTINE POLACRILEX 2 MG LOZENGE PO PRN (12:51)
[2022-01-04] MEDS: LURASIDONE HCL 80 MG TABLET PO SCH (17:09)
[2022-01-04] MEDS: BENZTROPINE MESYLATE 1 MG TABLET PO SCH (17:09)
[2022-01-04] MEDS: QUEtiapine FUMARATE 100 MG TABLET PO PRN (20:27)
[2022-01-04 21:47] VITALS: BP 105/66
[2022-01-05] MEDS: METHADONE HCL 10 MG TABLET PO SCH (08:24)
[2022-01-05] MEDS: BuPROPion HCL 150 MG SR TABLET PO SCH ×2 (08:24→16:45)
[2022-01-05] MEDS: BusPIRone HCL 15 MG TABLET PO SCH ×2 (08:24→16:45)
[2022-01-05 08:25] VITALS: BP 123/69
[2022-01-05] MEDS: GABAPENTIN 300 MG CAPSULE PO SCH ×3 (08:25→20:32)
[2022-01-05] MEDS: BACITRACIN 28 GM OINTMENT TP SCH ×2 (08:25→16:44)
[2022-01-05] MEDS: MULTIVITAMINS WITH MINERALS, THERAPEUTIC TABLET PO SCH (08:25)
[2022-01-05] MEDS: NICOTINE POLACRILEX 2 MG LOZENGE PO PRN ×2 (09:52→17:20)
[2022-01-05] MEDS: LORazepam 2 MG TABLET PO PRN (09:52)
[2022-01-05] MEDS: LURASIDONE HCL 80 MG TABLET PO SCH (16:44)
[2022-01-05] MEDS: BENZTROPINE MESYLATE 1 MG TABLET PO SCH (16:45)
[2022-01-05] MEDS: QUEtiapine FUMARATE 100 MG TABLET PO PRN (17:20)
[2022-01-05 20:28] VITALS: BP 125/71
[2022-01-06 08:16] VITALS: BP 114/73
[2022-01-06] MEDS: BusPIRone HCL 15 MG TABLET PO SCH ×2 (08:41→16:54)
[2022-01-06] MEDS: BuPROPion HCL 150 MG SR TABLET PO SCH ×2 (08:41→16:54)
[2022-01-06] MEDS: MULTIVITAMINS WITH MINERALS, THERAPEUTIC TABLET PO SCH (08:41)
[2022-01-06] MEDS: GABAPENTIN 300 MG CAPSULE PO SCH ×3 (08:41→20:28)
[2022-01-06] MEDS: BACITRACIN 28 GM OINTMENT TP SCH ×2 (08:44→16:55)
[2022-01-06] MEDS: METHADONE HCL 10 MG TABLET PO SCH (08:44)
[2022-01-06] MEDS: NICOTINE POLACRILEX 2 MG LOZENGE PO PRN (14:55)
[2022-01-06] MEDS: LORazepam 2 MG TABLET PO PRN (14:55)
[2022-01-06] MEDS: BENZTROPINE MESYLATE 1 MG TABLET PO SCH (16:54)
[2022-01-06] MEDS: LURASIDONE HCL 80 MG TABLET PO SCH (16:54)
[2022-01-06 20:17] VITALS: BP 127/68
[2022-01-07 08:10] VITALS: BP 124/68
[2022-01-07] MEDS: METHADONE HCL 10 MG TABLET PO SCH (08:49)
[2022-01-07] MEDS: GABAPENTIN 300 MG CAPSULE PO SCH ×3 (08:49→20:50)
[2022-01-07] MEDS: MULTIVITAMINS WITH MINERALS, THERAPEUTIC TABLET PO SCH (08:49)
[2022-01-07] MEDS: BACITRACIN 28 GM OINTMENT TP SCH ×2 (08:49→17:04)
[2022-01-07] MEDS: BusPIRone HCL 15 MG TABLET PO SCH ×2 (08:49→16:46)
[2022-01-07] MEDS: BuPROPion HCL 150 MG SR TABLET PO SCH ×2 (08:49→16:46)
[2022-01-07] MEDS: BENZTROPINE MESYLATE 1 MG TABLET PO SCH (16:46)
[2022-01-07] MEDS: LURASIDONE HCL 80 MG TABLET PO SCH (16:46)
[2022-01-07] MEDS: NICOTINE POLACRILEX 2 MG LOZENGE PO PRN (17:14)
[2022-01-07 20:07] VITALS: BP 128/64
[2022-01-07] MEDS: ZOLPIDEM TARTRATE 10 MG TABLET PO PRN (20:50)
[2022-01-08 08:11] LABS: GLUCOMETER DEV NAME(LOC) POC.BV
[2022-01-08 08:31] VITALS: BP 138/72
[2022-01-08] MEDS: BusPIRone HCL 15 MG TABLET PO SCH (08:37)
[2022-01-08] MEDS: BuPROPion HCL 150 MG SR TABLET PO SCH (08:37)
[2022-01-08] MEDS: GABAPENTIN 300 MG CAPSULE PO SCH (08:37)
[2022-01-08] MEDS: MULTIVITAMINS WITH MINERALS, THERAPEUTIC TABLET PO SCH (08:37)
[2022-01-08] MEDS: METHADONE HCL 10 MG TABLET PO SCH (08:38)
[2022-01-08] MEDS: BACITRACIN 28 GM OINTMENT TP SCH (08:38)
[2022-01-08] MEDS ORDERED: BUPR-113 PO (12:05)
[2022-01-08] MEDS ORDERED: BUSP15 PO (12:05)
[2022-01-08] MEDS ORDERED: LURA80TA2 PO ×2 (12:05→14:11)
[2022-01-08] MEDS ORDERED: BENZ1TAB96 PO ×2 (12:05→14:10)
[2022-01-08] MEDS ORDERED: GABA-1181 PO (14:12)
== END 2022-01-08 15:08 | disposition home or self-care (01) | DRG 750 ==
LOC: B3A 12-14 00:13 → B2S 12-24 13:30
PROVIDERS: ADMIT Psychiatry & Neurology Psychiatry; ATTEND Psychiatry & Neurology Psychiatry
DX: F25.1 Schizoaffective disorder, depressive type (principal); R45.851 Suicidal ideations; E66.9 Obesity, unspecified; Z20.822 Contact with and (suspected) exposure to COVID-19; Z68.30 Body mass index [BMI] 30.0-30.9, adult; F11.20 Opioid dependence, uncomplicated; F41.0 Panic disorder [episodic paroxysmal anxiety]; G47.00 Insomnia, unspecified; I10 Essential (primary) hypertension; Z59.00 Homelessness unspecified; Z79.899 Other long term (current) drug therapy; Z87.11 Personal history of peptic ulcer disease; Z91.51 Personal history of suicidal behavior
CPT/HCPCS: 80053; 80061; 80307; 83036; 84439; 84443; 85025; 87081; Q9967